=== PATIENT | female | born 1940 | race Hispanic/Latino ===

== ENCOUNTER 2017-05-14 14:13 | Inpatient (IN) | payer MEDICARE ==
[~2017-05-14] VITALS: Ht 162.6 cm; Wt 71.6 kg
[2017-05-14 14:37] LABS: BASOPHILS % (AUTO) 1.2 % (0.0-5.0); EOSINOPHILS % (AUTO) 1.8 % (0.0-8.0); HEMATOCRIT 32.9 % (36-48); LYMPHOCYTES % (AUTO) 25.1 % (21.0-51.0); MEAN CORPUSCULAR HEMOGLOBIN 27.6 pg (27.0-33.0); MEAN CORPUSCULAR HGB CONC 33.1 g/dL (32.0-36.0); MEAN CORPUSCULAR VOLUME 83.5 fL (79-99); MONOCYTES % (AUTO) 10.4 % (3.0-13.0); NEUTROPHILS % (AUTO) 61.5 % (40.0-77.0); PLATELET COUNT (AUTO) 440 K/uL (130-400); RED BLOOD CELL COUNT(AUTO) 3.93 MIL/uL (4.00-5.50); RED CELL DISTRIBUTION WIDTH 14.5 % (11.0-15.5); WHITE BLOOD COUNT (AUTO) 9.8 K/uL (4.8-10.8)
[2017-05-14] MEDS ORDERED: METOPROLOL TARTRATE 1 MG/ML 5ML VIAL IV ONE ×2 (14:38→15:47)
[2017-05-14] MEDS ORDERED: ASPIRIN 325 MG TABLET ONE (14:44)
[2017-05-14 14:49] LABS: CREATININE 1.8 mg/dL (0.5-1.5); POTASSIUM 4.6 mmol/L (3.5-5.1)
[2017-05-14 14:50] LABS: INR 1.01 (0.85-1.15); PARTIAL THROMBOPLASTIN TIME 28.1 SEC (26.3-35.5); PROTHROMBIN TIME 10.6 SEC (9.6-11.6)
[2017-05-14 15:03] LABS: ALBUMIN 3.6 g/dL (3.5-5.0); BILIRUBIN,TOTAL 0.4 mg/dL (0.2-1.0); CREATINE KINASE MB 0.8 ng/mL (0.5-3.6); TOTAL PROTEIN, SERUM 7.8 g/dL (6.0-8.3)
[2017-05-14 17:29] VITALS: BP 131/73
[2017-05-14] MEDS ORDERED: SITA50TA PO (17:45)
[2017-05-14] MEDS ORDERED: MEDROL DOSE PACK PO (17:45)
[2017-05-14] MEDS ORDERED: GUAI-899 PO (17:45)
[2017-05-14] MEDS ORDERED: METO5TAB7 PO (17:45)
[2017-05-14] MEDS ORDERED: METO37.5 PO (17:45)
[2017-05-14] MEDS ORDERED: PRAV40TA3 PO (17:45)
[2017-05-14] MEDS ORDERED: HYDR-4154 PO (17:45)
[2017-05-14] MEDS ORDERED: FURO40TA5 PO (17:45)
[2017-05-14] MEDS ORDERED: VALS160T29 PO (17:45)
[2017-05-14] MEDS ORDERED: DOXY100T2 PO (17:45)
[2017-05-14] MEDS ORDERED: AMLO10TA2 PO (17:45)
[2017-05-14] MEDS ORDERED: SODIUM CHLORIDE 0.9% 10 ML VIAL IVP PRN (18:00)
[2017-05-14] MEDS ORDERED: ONDANSETRON HCL 4 MG/2 ML VIAL IVP PRN (18:15)
[2017-05-14] MEDS ORDERED: LACTULOSE 20 GM/30 ML UDCUP PO PRN (18:15)
[2017-05-14] MEDS ORDERED: ACETAMINOPHEN 325 MG TAB PO PRN ×2 (18:15)
[2017-05-14 19:35] VITALS: BP 121/60
[2017-05-14] MEDS ORDERED: POTASSIUM CHLORIDE 10% ELIXIR 20 MEQ/15 ML UDCUP PO PRN (19:45)
[2017-05-14] MEDS ORDERED: POTASSIUM CHLORIDE 20MEQ/100ML 100 ML IV PRN (19:45)
[2017-05-14] MEDS ORDERED: GLUCAGON 1MG KIT 1 MG ML IM PRN (19:45)
[2017-05-14] MEDS ORDERED: LIDOCAINE HCL-MPF 1% 2ML VIAL IVP PRN (19:45)
[2017-05-14] MEDS ORDERED: DEXTROSE 50%-WATER 50 ML DISP.SYRIN IV PRN (19:45)
[2017-05-14] MEDS ORDERED: POTASSIUM CHLORIDE 20 MEQ ERTAB PO PRN (19:45)
[2017-05-14] MEDS: ATORVASTATIN CALCIUM 40 MG TABLET PO SCH (20:32)
[2017-05-14] MEDS: APIXABAN 5 MG TABLET PO SCH (20:32)
[2017-05-14] MEDS: CARVEDILOL 3.125 MG TABLET PO SCH (20:32)
[2017-05-14] MEDS: FAMOTIDINE 20MG TAB 20 MG TAB PO SCH (20:33)
[2017-05-14] MEDS: INSULIN HUMULIN R 100 UNIT/ML 3ML SQ SCH (20:55)
[2017-05-14] MEDS ORDERED: ASPIRIN 325 MG TABLET PO SCH (21:00)
[2017-05-14] MEDS ORDERED: CARVEDILOL 3.125 MG TABLET PO SCH (21:00)
[2017-05-14] MEDS ORDERED: ENOXAPARIN SODIUM 60 MG/0.6 ML SQ SCH (21:00)
[2017-05-14] MEDS ORDERED: ZOLPIDEM TARTRATE 5 MG TAB PO PRN (21:45)
[2017-05-14 22:53] LABS: CREATINE KINASE MB 0.7 ng/mL (0.5-3.6); TROPONIN I 0.06 ng/mL (0.00-0.06)
[2017-05-14 23:49] VITALS: BP 92/52
[2017-05-15 03:36] VITALS: BP 98/52
[2017-05-15] MEDS: INSULIN HUMULIN R 100 UNIT/ML 3ML SQ SCH ×4 (06:15→21:00)
[2017-05-15 07:10] LABS: CREATINE KINASE MB 0.7 ng/mL (0.5-3.6); THYROID STIMULATING HORMONE 2.15 uIU/mL (0.36-3.74); TROPONIN I 0.06 ng/mL (0.00-0.06)
[2017-05-15 07:15] VITALS: BP 105/51
[2017-05-15] MEDS: FAMOTIDINE 20MG TAB 20 MG TAB PO SCH ×2 (07:38→20:11)
[2017-05-15] MEDS: LOSARTAN 100 MG TABLET PO SCH (07:38)
[2017-05-15] MEDS: APIXABAN 5 MG TABLET PO SCH ×2 (07:38→20:12)
[2017-05-15] MEDS: CARVEDILOL 3.125 MG TABLET PO SCH ×2 (07:39→20:12)
[2017-05-15] MEDS ORDERED: GUAIFENESIN-CODEINE 5 ML SYRUP PO PRN (07:45)
[2017-05-15 08:09] LABS: CREATININE 1.8 mg/dL (0.5-1.5); POTASSIUM 4.5 mmol/L (3.5-5.1)
[2017-05-15] MEDS ORDERED: CARVEDILOL 3.125 MG TABLET PO SCH (08:30)
[2017-05-15] MEDS ORDERED: FUROSEMIDE 40 MG TABLET PO SCH (09:00)
[2017-05-15] MEDS: PREDNISONE 10 MG TABLET PO SCH (09:21)
[2017-05-15] MEDS: DOXYCYCLINE HYCLATE 100 MG TABLET PO SCH ×2 (09:21→20:12)
[2017-05-15] MEDS ORDERED: LINAGLIPTIN 5 MG TABLET PO SCH (10:15)
[2017-05-15 11:35] VITALS: BP 101/45
[2017-05-15] MEDS ORDERED: LINAGLIPTIN 5 MG TABLET PO PRN (12:30)
[2017-05-15 16:00] VITALS: BP 99/54
[2017-05-15 19:26] VITALS: BP 98/61
[2017-05-15] MEDS: ATORVASTATIN CALCIUM 20 MG TABLET PO SCH (20:11)
[2017-05-15] MEDS: ATORVASTATIN CALCIUM 40 MG TABLET PO SCH (20:13)
[2017-05-15] MEDS ORDERED: DILTIAZEM HCL 60 MG TABLET ONE (22:23)
[2017-05-15] MEDS: DILTIAZEM HCL 60 MG TABLET PO SCH (22:30)
[2017-05-15 23:57] VITALS: BP 93/59
[2017-05-16 03:31] VITALS: BP 117/58
[2017-05-16 03:48] LABS: HEMATOCRIT 29.6 % (36-48); MEAN CORPUSCULAR HEMOGLOBIN 27.7 pg (27.0-33.0); MEAN CORPUSCULAR HGB CONC 33.1 g/dL (32.0-36.0); MEAN CORPUSCULAR VOLUME 83.6 fL (79-99); PLATELET COUNT (AUTO) 350 K/uL (130-400); RED BLOOD CELL COUNT(AUTO) 3.54 MIL/uL (4.00-5.50); RED CELL DISTRIBUTION WIDTH 14.3 % (11.0-15.5); WHITE BLOOD COUNT (AUTO) 8.9 K/uL (4.8-10.8)
[2017-05-16] MEDS: DILTIAZEM HCL 60 MG TABLET PO SCH (03:53)
[2017-05-16 04:00] LABS: POTASSIUM 4.2 mmol/L (3.5-5.1)
[2017-05-16] MEDS: INSULIN HUMULIN R 100 UNIT/ML 3ML SQ SCH ×4 (06:09→21:00)
[2017-05-16 07:49] VITALS: BP 120/72
[2017-05-16] MEDS: APIXABAN 5 MG TABLET PO SCH ×2 (08:46→21:20)
[2017-05-16] MEDS: FAMOTIDINE 20MG TAB 20 MG TAB PO SCH ×2 (08:46→21:19)
[2017-05-16] MEDS: CARVEDILOL 3.125 MG TABLET PO SCH (08:46)
[2017-05-16] MEDS: LOSARTAN 100 MG TABLET PO SCH (08:47)
[2017-05-16] MEDS: DOXYCYCLINE HYCLATE 100 MG TABLET PO SCH ×2 (08:47→21:20)
[2017-05-16] MEDS: PREDNISONE 10 MG TABLET PO SCH (08:47)
[2017-05-16] MEDS ORDERED: AMIODARONE HCL 900 MG in DEXTROSE 5%-WATER 500 ML IV SCH (10:15)
[2017-05-16] MEDS ORDERED: AMIODARONE HCL 150 MG in DEXTROSE 5%-WATER 100 ML IV SCH (10:15)
[2017-05-16] MEDS: FUROSEMIDE 40 MG TABLET PO SCH (10:35)
[2017-05-16 11:36] VITALS: BP 103/54
[2017-05-16 16:00] VITALS: BP 110/57
[2017-05-16 19:26] VITALS: BP 125/74
[2017-05-16] MEDS: ATORVASTATIN CALCIUM 20 MG TABLET PO SCH (21:19)
[2017-05-16] MEDS: ATORVASTATIN CALCIUM 40 MG TABLET PO SCH (21:19)
[2017-05-16] MEDS: CARVEDILOL 12.5 MG TABLET PO SCH (21:20)
[2017-05-16 23:19] VITALS: BP 102/67
[2017-05-17 03:33] VITALS: BP 115/62
[2017-05-17 04:31] LABS: CREATININE 1.9 mg/dL (0.5-1.5); POTASSIUM 4.1 mmol/L (3.5-5.1)
[2017-05-17] MEDS: INSULIN HUMULIN R 100 UNIT/ML 3ML SQ SCH ×4 (05:48→20:48)
[2017-05-17 07:58] VITALS: BP 109/63
[2017-05-17] MEDS: LINAGLIPTIN 5 MG TABLET PO SCH ×2 (08:00→09:02)
[2017-05-17] MEDS: FUROSEMIDE 40 MG TABLET PO SCH (08:50)
[2017-05-17] MEDS: FAMOTIDINE 20MG TAB 20 MG TAB PO SCH ×2 (09:00→20:53)
[2017-05-17] MEDS: APIXABAN 5 MG TABLET PO SCH ×2 (09:01→20:52)
[2017-05-17] MEDS: CARVEDILOL 12.5 MG TABLET PO SCH ×2 (09:01→20:53)
[2017-05-17] MEDS: PREDNISONE 10 MG TABLET PO SCH (09:02)
[2017-05-17] MEDS: DOXYCYCLINE HYCLATE 100 MG TABLET PO SCH ×2 (09:02→20:54)
[2017-05-17] MEDS: DILTIAZEM HCL 60 MG TABLET PO SCH ×3 (10:03→20:51)
[2017-05-17 12:00] VITALS: BP 102/54
[2017-05-17] MEDS ORDERED: ONDANSETRON HCL MDV 20ML 2 MG/ML VIAL IVP PRN (12:37)
[2017-05-17 17:36] VITALS: BP 103/57
[2017-05-17 19:27] VITALS: BP 111/58
[2017-05-17] MEDS: ATORVASTATIN CALCIUM 20 MG TABLET PO SCH (20:51)
[2017-05-17] MEDS: ATORVASTATIN CALCIUM 40 MG TABLET PO SCH (20:52)
[2017-05-17] MEDS: AMIODARONE HCL 200 MG TABLET PO SCH (20:53)
[2017-05-17 23:32] VITALS: BP 101/67
[2017-05-18] VITALS (18 sets, daily range): BP systolic 90–122; BP diastolic 41–70
[2017-05-18 04:32] LABS: HEMATOCRIT 28.6 % (36-48); MEAN CORPUSCULAR HGB CONC 33.9 g/dL (32.0-36.0); MEAN CORPUSCULAR VOLUME 82.8 fL (79-99); PLATELET COUNT (AUTO) 354 K/uL (130-400); RED BLOOD CELL COUNT(AUTO) 3.46 MIL/uL (4.00-5.50); RED CELL DISTRIBUTION WIDTH 14.3 % (11.0-15.5); WHITE BLOOD COUNT (AUTO) 8.3 K/uL (4.8-10.8)
[2017-05-18 04:45] LABS: CREATININE 1.9 mg/dL (0.5-1.5); POTASSIUM 4.1 mmol/L (3.5-5.1)
[2017-05-18] MEDS: INSULIN HUMULIN R 100 UNIT/ML 3ML SQ SCH ×4 (06:27→21:00)
[2017-05-18] MEDS ORDERED: SODIUM CHLORIDE 0.9% 1000ML 1,000 ML IV ONE (08:58)
[2017-05-18] MEDS: DILTIAZEM HCL 60 MG TABLET PO SCH ×4 (09:00→19:42)
[2017-05-18] MEDS: FENTANYL CITRATE PF 50 MCG/1 ML 2ML VIAL IVP SCH ×2 (09:38)
[2017-05-18] MEDS: MIDAZOLAM HCL 1 MG/ML 5ML VIAL IVP SCH (09:38)
[2017-05-18] MEDS: MIDAZOLAM HCL 1 MG/ML 2ML VIAL IVP SCH (09:38)
[2017-05-18] MEDS ORDERED: CARV25TA PO (10:23)
[2017-05-18] MEDS ORDERED: AMIO200T44 PO (10:23)
[2017-05-18] MEDS ORDERED: APIX5TAB PO (10:23)
[2017-05-18] MEDS: AMIODARONE HCL 200 MG TABLET PO SCH ×2 (14:13→19:42)
[2017-05-18] MEDS: DOXYCYCLINE HYCLATE 100 MG TABLET PO SCH ×2 (14:13→20:07)
[2017-05-18] MEDS: PREDNISONE 10 MG TABLET PO SCH (14:14)
[2017-05-18] MEDS: LINAGLIPTIN 5 MG TABLET PO SCH (14:14)
[2017-05-18] MEDS: FAMOTIDINE 20MG TAB 20 MG TAB PO SCH ×2 (14:14→20:07)
[2017-05-18] MEDS: APIXABAN 5 MG TABLET PO SCH ×2 (14:15→20:06)
[2017-05-18] MEDS ORDERED: CARVEDILOL 12.5 MG TABLET PO SCH (15:15)
[2017-05-18] MEDS: CARVEDILOL 12.5 MG TABLET PO SCH (20:06)
[2017-05-18] MEDS: ATORVASTATIN CALCIUM 20 MG TABLET PO SCH (20:07)
[2017-05-19 03:12] VITALS: BP 119/46
[2017-05-19 07:15] VITALS: BP 131/52
[2017-05-19] MEDS: INSULIN HUMULIN R 100 UNIT/ML 3ML SQ SCH (07:30)
[2017-05-19 07:44] VITALS: BP 131/52
[2017-05-19] MEDS: PREDNISONE 10 MG TABLET PO SCH (07:44)
[2017-05-19] MEDS: LINAGLIPTIN 5 MG TABLET PO SCH (07:44)
[2017-05-19] MEDS: CARVEDILOL 12.5 MG TABLET PO SCH (07:44)
[2017-05-19] MEDS: DOXYCYCLINE HYCLATE 100 MG TABLET PO SCH (07:45)
[2017-05-19] MEDS: APIXABAN 5 MG TABLET PO SCH (07:45)
[2017-05-19] MEDS: FAMOTIDINE 20MG TAB 20 MG TAB PO SCH (07:45)
[2017-05-19] MEDS: AMIODARONE HCL 200 MG TABLET PO SCH (07:45)
[2017-05-19] MEDS: DILTIAZEM HCL 60 MG TABLET PO SCH (07:47)
[2017-05-19] MEDS: MIDAZOLAM HCL 1 MG/ML 5ML VIAL IVP SCH (07:53)
[2017-05-19] MEDS: MIDAZOLAM HCL 1 MG/ML 2ML VIAL IVP SCH (07:53)
[2017-05-19] MEDS: FENTANYL CITRATE PF 50 MCG/1 ML 2ML VIAL IVP SCH ×2 (07:53)
[2017-05-19] MEDS ORDERED: CARV12.580 PO (08:26)
== END 2017-05-19 10:12 | disposition home or self-care (01) | DRG 309 ==
LOC: EDH 14:13 → EDHIP 15:40 → 2DH 16:55
PROVIDERS: ADMIT Family Medicine; ATTEND Family Medicine
PROC: 5A2204Z Restoration of Cardiac Rhythm, Single (ICD-10-PCS; principal; 2017-05-18)
DX: I48.0 Paroxysmal atrial fibrillation (principal); I13.0 Hypertensive heart and chronic kidney disease with heart failure and stage 1 through stage 4 chronic kidney disease, or unspecified chronic kidney disease; N18.4 Chronic kidney disease, stage 4 (severe); E11.21 Type 2 diabetes mellitus with diabetic nephropathy; I42.9 Cardiomyopathy, unspecified; I08.1 Rheumatic disorders of both mitral and tricuspid valves; I50.32 Chronic diastolic (congestive) heart failure; E11.22 Type 2 diabetes mellitus with diabetic chronic kidney disease; I48.1 Persistent atrial fibrillation; I48.91 Unspecified atrial fibrillation; D64.9 Anemia, unspecified; E78.5 Hyperlipidemia, unspecified; J06.9 Acute upper respiratory infection, unspecified; J40 Bronchitis, not specified as acute or chronic; Z16.24 Resistance to multiple antibiotics; R49.0 Dysphonia; Z79.01 Long term (current) use of anticoagulants; Z79.899 Other long term (current) drug therapy; Z88.8 Allergy status to other drugs, medicaments and biological substances; Z88.0 Allergy status to penicillin; Z82.49 Family history of ischemic heart disease and other diseases of the circulatory system
CPT/HCPCS: 36415; 71045; 80048; 80053; 82550; 82553; 82948; 83874; 83880; 84443; 84484; 85025; 85027; 85610; 85730; 93005; 93306; 93312; J0282; J1815; J2250; J3010; J3490; J7030; J7060; J7512

== ENCOUNTER → 2017-08-16 | Outpatient (CLI) | payer MEDICARE ==
[~2017-08-16] MED LIST: AMIO200T44 PO; APIX5TAB PO; CARV12.580 PO; CARV25TA PO; DOXY100T2 PO; FURO40TA5 PO; GUAI-899 PO; MEDROL DOSE PACK PO; PRAV40TA3 PO; SITA50TA PO
== END | disposition home or self-care (01) ==
LOC: SHCH 09:09
PROVIDERS: ATTEND Internal Medicine Cardiovascular Disease
DX: I42.9 Cardiomyopathy, unspecified (principal); I35.0 Nonrheumatic aortic (valve) stenosis; I34.0 Nonrheumatic mitral (valve) insufficiency; I27.20 Pulmonary hypertension, unspecified
CPT/HCPCS: 93306

== ENCOUNTER 2017-10-30 23:48 | Observation (INO) | payer MEDICARE ==
[~2017-10-30] VITALS: Ht 144.8 cm; Wt 83.8 kg
[2017-10-31 00:42] LABS: BASOPHILS % (AUTO) 1.1 % (0.0-5.0); EOSINOPHILS % (AUTO) 2.5 % (0.0-8.0); HEMATOCRIT 32.1 % (36-48); LYMPHOCYTES % (AUTO) 23.4 % (21.0-51.0); MEAN CORPUSCULAR HEMOGLOBIN 26.8 pg (27.0-33.0); MEAN CORPUSCULAR HGB CONC 32.7 g/dL (32.0-36.0); MONOCYTES % (AUTO) 8.4 % (3.0-13.0); NEUTROPHILS % (AUTO) 64.6 % (40.0-77.0); NUCLEATED RED BLOOD CELLS 0.1 % (0.0-0.19); PLATELET COUNT (AUTO) 289 K/uL (130-400); RED BLOOD CELL COUNT(AUTO) 3.92 MIL/uL (4.00-5.50); RED CELL DISTRIBUTION WIDTH 15.1 % (11.0-15.5); WHITE BLOOD COUNT (AUTO) 6.7 K/uL (4.8-10.8)
[2017-10-31] MEDS ORDERED: IPRATROPIUM/ALBUTEROL SULFATE 3 ML SOLUTION IH ONE (00:42)
[2017-10-31 00:53] LABS: APPEARANCE,URINE Clear (CLEAR); BILIRUBIN,URINE Negative (NEGATIVE); COLOR,URINE Yellow (YELLOW); GLUCOSE, URINE (UA) Negative (NEGATIVE); KETONES,URINE Negative (NEGATIVE); LEUKOCYTE ESTERASE ,URINE Trace (NEGATIVE); NITRATE,URINE Negative (NEGATIVE); OCCULT BLOOD,URINE Negative (NEGATIVE); PROTEIN,URINE Negative (NEGATIVE); UROBILINOGEN,URINE 0.2 mg/dL (0.2-1.0)
[2017-10-31 00:54] LABS: ALBUMIN 3.9 g/dL (3.5-5.0); BILIRUBIN,TOTAL 0.4 mg/dL (0.2-1.0); CREATININE 1.8 mg/dL (0.5-1.5); TOTAL PROTEIN, SERUM 7.7 g/dL (6.0-8.3)
[2017-10-31 00:55] LABS: RAPID GROUP A STREP NEGATIVE (NEGATIVE)
[2017-10-31 01:09] LABS: BACTERIA,URINE None Seen /HPF (None Seen); RBC,URINE None Seen /HPF (0-1); SQUAMOUS EPITHELIAL CELL,UR Rare /HPF (0-2); WBC,URINE 0-1 /HPF (0-1)
[2017-10-31 01:13] LABS: B-TYPE NATRIURETIC PEPTIDE 115 pg/mL (0-100)
[2017-10-31 01:34] LABS: POTASSIUM 3.4 mmol/L (3.5-5.1)
[2017-10-31] MEDS: ASPIRIN 325 MG TABLET PO SCH (09:00)
[2017-10-31] MEDS ORDERED: ASPIRIN 325 MG TABLET ONE (12:31)
[2017-10-31 12:45] VITALS: BP 136/48
[2017-10-31 13:03] LABS: TROPONIN I 0.09 ng/mL (0.00-0.06)
[2017-10-31 16:00] VITALS: BP 131/47
[2017-10-31] MEDS ORDERED: APIX2.5T PO (17:12)
[2017-10-31] MEDS ORDERED: AZIT250T9 PO (17:12)
[2017-10-31] MEDS ORDERED: AMLO5TAB7 PO (17:12)
[2017-10-31] MEDS ORDERED: BUDE10.2 IH (17:12)
[2017-10-31] MEDS ORDERED: FURO40TA5 PO (17:12)
[2017-10-31] MEDS ORDERED: CARV6.25 PO (17:12)
[2017-10-31] MEDS ORDERED: HYDR-4154 PO (17:12)
[2017-10-31 19:00] VITALS: BP 137/51
[2017-10-31 23:00] VITALS: BP 121/37
[2017-11-01 03:00] VITALS: BP 121/50
[2017-11-01 07:38] VITALS: BP 151/62
[2017-11-01] MEDS: ASPIRIN 325 MG TABLET PO SCH (10:39)
[2017-11-01 11:21] VITALS: BP 132/54
[2017-11-01 15:00] VITALS: BP 148/56
[2017-11-01] MEDS ORDERED: ALBUTEROL SULFATE 0.083% 2.5 MG/3 ML INH IH SCH (18:00)
[2017-11-01 19:00] VITALS: BP 139/62
[2017-11-01] MEDS: BUDESONIDE 0.5 MG/2 ML INH IH SCH (19:51)
[2017-11-01] MEDS ORDERED: AZITHROMYCIN 250 MG TABLET PO SCH (20:30)
[2017-11-01] MEDS: CARVEDILOL 6.25 MG TABLET PO SCH (20:50)
[2017-11-01] MEDS: AMLODIPINE BESYLATE 5 MG TAB PO SCH (20:51)
[2017-11-01] MEDS: FUROSEMIDE 40 MG TABLET PO SCH (20:51)
[2017-11-01] MEDS: APIXABAN 2.5 MG TABLET PO SCH (20:51)
[2017-11-01] MEDS ORDERED: ATORVASTATIN CALCIUM 10 MG TABLET PO SCH (21:00)
[2017-11-01 23:00] VITALS: BP 134/51
[2017-11-01] MEDS: IPRATROPIUM 0.5 MG/2.5 ML INH IH PRN (23:18)
[2017-11-02 03:00] VITALS: BP 133/54
[2017-11-02 06:04] LABS: TROPONIN I 0.06 ng/mL (0.00-0.06)
[2017-11-02] MEDS: IPRATROPIUM 0.5 MG/2.5 ML INH IH PRN (06:16)
[2017-11-02] MEDS: BUDESONIDE 0.5 MG/2 ML INH IH SCH (06:16)
[2017-11-02] MEDS: HYDRALAZINE HCL 25 MG TABLET PO SCH ×3 (06:33→17:00)
[2017-11-02 07:00] VITALS: BP 129/59
[2017-11-02] MEDS: APIXABAN 2.5 MG TABLET PO SCH (08:37)
[2017-11-02] MEDS: ASPIRIN 325 MG TABLET PO SCH (08:37)
[2017-11-02] MEDS: FUROSEMIDE 40 MG TABLET PO SCH (08:37)
[2017-11-02] MEDS: AMLODIPINE BESYLATE 5 MG TAB PO SCH (08:38)
[2017-11-02] MEDS: CARVEDILOL 6.25 MG TABLET PO SCH (08:38)
[2017-11-02] MEDS ORDERED: AMIODARONE HCL 200 MG TABLET PO SCH (09:00)
[2017-11-02] MEDS ORDERED: PREDNISONE 20 MG TABLET PO SCH (09:00)
[2017-11-02] MEDS ORDERED: AZITHROMYCIN 250 MG TABLET PO SCH (09:00)
[2017-11-02 11:00] VITALS: BP 113/48
[2017-11-02 18:45] VITALS: BP 135/91
== END 2017-11-02 17:08 | disposition home or self-care (01) ==
LOC: EDH 23:48 → EDHIP 10-31 06:38 → 3BH 10-31 12:23
PROVIDERS: ADMIT Internal Medicine; ATTEND Internal Medicine
DX: J44.1 Chronic obstructive pulmonary disease with (acute) exacerbation (principal); I48.0 Paroxysmal atrial fibrillation; J84.10 Pulmonary fibrosis, unspecified; I25.10 Atherosclerotic heart disease of native coronary artery without angina pectoris; E78.5 Hyperlipidemia, unspecified; E11.9 Type 2 diabetes mellitus without complications; I11.9 Hypertensive heart disease without heart failure; Z88.0 Allergy status to penicillin; Z79.01 Long term (current) use of anticoagulants; Z90.49 Acquired absence of other specified parts of digestive tract; Z82.49 Family history of ischemic heart disease and other diseases of the circulatory system; Z83.3 Family history of diabetes mellitus
CPT/HCPCS: 36415 ×2; 71045; 71250; 80053; 81001; 82550 ×3; 83874 ×2; 83880; 84484 ×4; 85025; 87804 ×2; 87880; 93005; 94640 ×6; 94664; 99285; G0378 ×58

== ENCOUNTER 2019-04-26 00:07 | Emergency (ER) | payer MEDICARE ==
[~2019-04-26 00:07] MED LIST changes: +AMLO5TAB9 PO; +APIX2.5T PO; -APIX5TAB PO; +AZIT250T9 PO; +BUDE10.2 IH; -CARV12.580 PO; -CARV25TA PO; +CARV6.25 PO; -DOXY100T2 PO; -GUAI-899 PO; +HYDR-4154 PO; -MEDROL DOSE PACK PO; -SITA50TA PO
[2019-04-26 00:38] LABS: BASOPHILS % (AUTO) 0.6 % (0.0-5.0); EOSINOPHILS % (AUTO) 2.9 % (0.0-8.0); HEMATOCRIT 29.3 % (36-48); LYMPHOCYTES % (AUTO) 28.2 % (21.0-51.0); MEAN CORPUSCULAR HEMOGLOBIN 26.3 pg (27.0-33.0); MEAN CORPUSCULAR HGB CONC 30.4 g/dL (32.0-36.0); MEAN CORPUSCULAR VOLUME 86.4 fL (79-99); MONOCYTES % (AUTO) 10.2 % (3.0-13.0); NEUTROPHILS % (AUTO) 57.6 % (40.0-77.0); PLATELET COUNT (AUTO) 284 K/uL (130-400); RED BLOOD CELL COUNT(AUTO) 3.39 MIL/uL (4.00-5.50); RED CELL DISTRIBUTION WIDTH 13.9 % (11.0-15.5); WHITE BLOOD COUNT (AUTO) 6.6 K/uL (4.8-10.8)
[2019-04-26 00:39] LABS: CREATININE 2.1 mg/dL (0.5-1.5); POTASSIUM 3.2 mmol/L (3.5-5.1)
[2019-04-26 00:44] LABS: BILIRUBIN,TOTAL 0.4 mg/dL (0.2-1.0); TOTAL PROTEIN, SERUM 7.3 g/dL (6.0-8.3)
[2019-04-26 00:46] LABS: ALBUMIN 3.3 g/dL (3.5-5.0)
[2019-04-26] MEDS ORDERED: KETOROLAC TROMETHAMINE 30MG/ML ONE (00:53)
[2019-04-26] MEDS ORDERED: ONDANSETRON HCL 4 MG/2 ML VIAL ONE (00:53)
[2019-04-26] MEDS ORDERED: SODIUM CHLORIDE 0.9% 1000ML 1,000 ML IV ONE (00:54)
[2019-04-26 01:01] LABS: B-TYPE NATRIURETIC PEPTIDE 135 pg/mL (0-100)
[2019-04-26 02:20] LABS: INR 1.16 (0.85-1.15); PARTIAL THROMBOPLASTIN TIME 34.8 SEC (26.3-35.5); PROTHROMBIN TIME 12.5 SEC (9.6-11.6)
== END 2019-04-26 05:06 | disposition home or self-care (01) ==
LOC: EDH 00:07
DX: R00.2 Palpitations (principal); E11.9 Type 2 diabetes mellitus without complications; E78.5 Hyperlipidemia, unspecified; I10 Essential (primary) hypertension; I48.91 Unspecified atrial fibrillation; Z98.890 Other specified postprocedural states; Z90.49 Acquired absence of other specified parts of digestive tract; Z88.0 Allergy status to penicillin; Z88.1 Allergy status to other antibiotic agents
CPT/HCPCS: 36415; 71045; 80053; 82550; 83880; 84484; 85025; 85610; 85730; 93005; J1885; J2405; J7030

== ENCOUNTER → 2022-09-14 | Outpatient (CLI) | payer OTHER, MEDICARE ==
[~2022-09-14] MED LIST changes: +AMIO100T4 PO; -AMIO200T44 PO; -AMLO5TAB9 PO; -AZIT250T9 PO; -BUDE10.2 IH; -CARV6.25 PO; +FURO20TA6 PO; -FURO40TA5 PO; -HYDR-4154 PO; +POTASSIUM
[2022-09-14 12:36] LABS: BASOPHILS % (AUTO) 1.2 % (0.0-5.0); EOSINOPHILS % (AUTO) 5.9 % (0.0-8.0); HEMATOCRIT 30.5 % (36-48); LYMPHOCYTES % (AUTO) 29.5 % (21.0-51.0); MEAN CORPUSCULAR HGB CONC 30.2 g/dL (32.0-36.0); MEAN CORPUSCULAR VOLUME 89.4 fL (79-99); MONOCYTES % (AUTO) 6.8 % (3.0-13.0); NEUTROPHILS % (AUTO) 56.3 % (40.0-77.0); PLATELET COUNT (AUTO) 274 K/uL (130-400); RED BLOOD CELL COUNT(AUTO) 3.41 MIL/uL (4.00-5.50); RED CELL DISTRIBUTION WIDTH 14.6 % (11.0-15.5); WHITE BLOOD COUNT (AUTO) 5.8 K/uL (4.8-10.8)
== END | disposition home or self-care (01) ==
LOC: LAB 11:04
PROVIDERS: ATTEND Internal Medicine Cardiovascular Disease
DX: Z79.01 Long term (current) use of anticoagulants (principal)
CPT/HCPCS: 36415; 85025

== ENCOUNTER → 2023-05-03 | Outpatient (CLI) | payer OTHER, MEDICARE ==
[2023-05-03 16:18] LABS: BASOPHILS # (AUTO) 0.05 K/uL (0.00-0.20); EOSINOPHILS # (AUTO) 0.25 K/uL (0.00-0.70); HEMATOCRIT 30.8 % (36-48); IMMATURE GRANULOCYTE ABSOLUTE 0.02 K/uL (0-1); LYMPHOCYTES # (AUTO) 1.3 K/uL (1.0-4.8); MEAN CORPUSCULAR HEMOGLOBIN 27.1 pg (27.0-33.0); MEAN CORPUSCULAR HGB CONC 29.9 g/dL (32.0-36.0); MEAN CORPUSCULAR VOLUME 90.6 fL (79-99); MONOCYTES # (AUTO) 0.4 K/uL (0.1-1.0); MONOCYTES % (AUTO) 6.9 % (3.0-13.0); NEUTROPHILS # (AUTO) 3.1 K/uL (1.8-7.7); NEUTROPHILS % (AUTO) 60.7 % (40.0-77.0); PLATELET COUNT (AUTO) 294 K/uL (130-400); RED CELL DISTRIBUTION WIDTH 15.5 % (11.0-15.5)
[2023-05-03 16:20] LABS: APPEARANCE,URINE CLEAR (CLEAR); BILIRUBIN,URINE NEGATIVE (NEGATIVE); COLOR,URINE LIGHT-YELLOW (YELLOW); GLUCOSE, URINE (UA) NEGATIVE (NEGATIVE); KETONES,URINE NEGATIVE (NEGATIVE); LEUKOCYTE ESTERASE ,URINE 250 Leu/uL (NEGATIVE); NITRATE,URINE NEGATIVE (NEGATIVE); OCCULT BLOOD,URINE NEGATIVE (NEGATIVE); PH,URINE 5.5 (5.0-8.0); PROTEIN,URINE NEGATIVE (NEGATIVE); UROBILINOGEN,URINE 0.2 mg/dL (0.2-1.0)
[2023-05-03 16:23] LABS: ADD UA MICROSCOPIC YES
[2023-05-03 16:26] LABS: BACTERIA,URINE RARE /HPF (None Seen); MUCUS,URINE RARE LPF (None Seen); SQUAMOUS EPITHELIAL CELL,UR FEW /HPF (0-2); YEAST,URINE BUDDING RARE /HPF (None Seen)
[2023-05-03 17:01] LABS: BILIRUBIN,TOTAL 0.5 mg/dL (0.2-1.0); CREATININE 1.4 mg/dL (0.5-1.0); MAGNESIUM 1.9 mg/dL (1.80-2.40); POTASSIUM 3.7 mmol/L (3.5-5.1); THYROID STIMULATING HORMONE 1.35 uIU/mL (0.36-3.74); TOTAL PROTEIN, SERUM 7.3 g/dL (6.0-8.3)
== END | disposition home or self-care (01) ==
LOC: LAB 11:17
PROVIDERS: ATTEND Nurse Practitioner Acute Care
DX: I48.0 Paroxysmal atrial fibrillation (principal); I50.32 Chronic diastolic (congestive) heart failure; R30.0 Dysuria
CPT/HCPCS: 36415; 80053; 81001; 83735; 84439; 84443; 85025; 87088

== ENCOUNTER → 2023-06-13 | Outpatient (CLI) | payer OTHER, MEDICARE ==
[~2023-06-13] MED LIST changes: +AMIO200T68 PO; +AMLO-257 PO; +DOXA4TAB3 PO; +HYDR50TA37 PO; +METO50TA18 PO
[2023-06-13 12:18] LABS: BASOPHILS # (AUTO) 0.05 K/uL (0.00-0.20); BASOPHILS % (AUTO) 0.9 % (0.0-5.0); EOSINOPHILS # (AUTO) 0.08 K/uL (0.00-0.70); EOSINOPHILS % (AUTO) 1.5 % (0.0-8.0); HEMATOCRIT 33.1 % (36-48); IMMATURE GRANULOCYTE ABSOLUTE 0.02 K/uL (0-1); LYMPHOCYTES % (AUTO) 17.3 % (21.0-51.0); MEAN CORPUSCULAR HEMOGLOBIN 26.5 pg (27.0-33.0); MEAN CORPUSCULAR HGB CONC 29.9 g/dL (32.0-36.0); MEAN CORPUSCULAR VOLUME 88.7 fL (79-99); MONOCYTES # (AUTO) 0.5 K/uL (0.1-1.0); MONOCYTES % (AUTO) 8.2 % (3.0-13.0); NEUTROPHILS # (AUTO) 3.9 K/uL (1.8-7.7); NEUTROPHILS % (AUTO) 71.7 % (40.0-77.0); PLATELET COUNT (AUTO) 226 K/uL (130-400); RED BLOOD CELL COUNT(AUTO) 3.73 MIL/uL (4.00-5.50); RED CELL DISTRIBUTION WIDTH 16.4 % (11.0-15.5); WHITE BLOOD COUNT (AUTO) 5.5 K/uL (4.8-10.8)
== END | disposition home or self-care (01) ==
LOC: LAB 11:12
PROVIDERS: ATTEND Internal Medicine Cardiovascular Disease
DX: Z79.01 Long term (current) use of anticoagulants (principal)
CPT/HCPCS: 36415; 85025

== ENCOUNTER → 2023-08-30 | Outpatient (CLI) | payer OTHER, MEDICARE ==
[~2023-08-30] MED LIST changes: -AMIO100T4 PO; -AMLO-257 PO; +DORZOLAMIDE OS; +LATA2.5D14 OS; +LEVA1.2542 IH; +METO25TA6 PO; -METO50TA18 PO; +POTA25TA41 PO; -POTASSIUM; +TIMOLOL OS; +symbicort IH
[2023-08-30 12:29] LABS: CREATININE 1.1 mg/dL (0.5-1.0); POTASSIUM 3.8 mmol/L (3.5-5.1)
== END | disposition home or self-care (01) ==
LOC: LAB 08:07
PROVIDERS: ATTEND Internal Medicine Cardiovascular Disease
DX: I48.0 Paroxysmal atrial fibrillation (principal)
CPT/HCPCS: 36415; 80048; 83735

== ENCOUNTER → 2023-09-19 | Outpatient (CLI) | payer OTHER, MEDICARE ==
[2023-09-19 16:52] LABS: CREATININE 1.9 mg/dL (0.5-1.0); MAGNESIUM 1.5 mg/dL (1.80-2.40)
== END | disposition home or self-care (01) ==
LOC: LAB 14:43
PROVIDERS: ATTEND Internal Medicine Cardiovascular Disease
DX: E83.42 Hypomagnesemia (principal); E87.6 Hypokalemia
CPT/HCPCS: 36415; 80048; 83735

== ENCOUNTER → 2023-11-08 | Outpatient (CLI) | payer OTHER, MEDICARE ==
[2023-11-08 12:57] LABS: ALBUMIN 2.9 g/dL (3.5-5.0); BILIRUBIN,TOTAL 0.5 mg/dL (0.2-1.0); CREATININE 1.4 mg/dL (0.5-1.0); MAGNESIUM 2.3 mg/dL (1.80-2.40); POTASSIUM 4.4 mmol/L (3.5-5.1); TOTAL PROTEIN, SERUM 7.4 g/dL (6.0-8.3)
== END | disposition home or self-care (01) ==
LOC: LAB 10:58
PROVIDERS: ATTEND Nurse Practitioner Acute Care
DX: E87.6 Hypokalemia (principal)
CPT/HCPCS: 36415; 80053; 83735

== ENCOUNTER → 2024-01-18 | Outpatient (CLI) | payer OTHER, MEDICARE ==
[2024-01-18 12:58] LABS: CREATININE 1.3 mg/dL (0.5-1.0); MAGNESIUM 2.3 mg/dL (1.80-2.40); POTASSIUM 4.3 mmol/L (3.5-5.1)
== END | disposition home or self-care (01) ==
LOC: LAB 09:12
PROVIDERS: ATTEND Internal Medicine Cardiovascular Disease
DX: E87.6 Hypokalemia (principal); I50.32 Chronic diastolic (congestive) heart failure
CPT/HCPCS: 36415; 80048; 83735; 83880

== ENCOUNTER 2024-08-29 15:58 | Inpatient (IN) | payer OTHER, MEDICAID ==
[~2024-08-29] VITALS: Ht 160 cm; Wt 54.4 kg
[~2024-08-29 15:58] MED LIST changes: -AMIO200T68 PO; +AMIO200T73 PO; -LATA2.5D14 OS; +LATA2.5D7 OS; -PRAV40TA3 PO; +PRAV40TA62 PO
[2024-08-29 16:35] LABS: IMMATURE GRANULOCYTE ABSOLUTE 0.03 K/uL (0-1); NUCLEATED RED BLOOD CELLS 0.0 % (0.0-0.19); PLATELET COUNT (AUTO) 315 K/uL (130-400); RED BLOOD CELL COUNT(AUTO) 3.48 MIL/uL (4.00-5.50); RED CELL DISTRIBUTION WIDTH 13.9 % (11.0-15.5); WHITE BLOOD COUNT (AUTO) 6.9 K/uL (4.8-10.8)
[2024-08-29 16:45] LABS: CREATININE 1.6 mg/dL (0.5-1.0); GLOMERULAR FILTR. RATE CALC 32.0 mL/min (>90); GLUCOSE,RANDOM 173.0 mg/dL (70-105); SODIUM SERUM 138.0 mmol/L (136-145); UREA NITROGEN, BLOOD 44.0 mg/dL (7-18)
[2024-08-29 16:59] LABS: INR 1.05 (0.85-1.15)
--- NOTE | 2024-08-29 17:35 | HMCIMG ---
EXAM: CR Chest, 1 View. CLINICAL HISTORY: CP COMPARISON: 08/25/2023. FINDINGS: LUNGS: Stable left basilar opacity. The right lung is clear. PLEURAL SPACES: No pneumothorax. No right pleural effusion. MEDIASTINUM: The cardiomediastinal silhouette is within normal limits. BONES: No aggressive appearing osseous lesion seen. IMPRESSION: Stable left basilar opacity. This is likely due to a combination of effusion and infiltrate. /[place]
--- NOTE | 2024-08-29 17:50 | ERN ---
General Chief Complaint: Palpitations Stated Complaint: HYPERTENSION Time Seen by MD: 15:58 Source: patient History of Present Illness Initial Comments In his is a an 83-year-old female coming in complaining of palpitations. Per patient she does has a history of an irregular heartbeat and has had complications in the past. Dr. Molina is patient's data power consultant. Allergies: Coded Allergies: Penicillins (Unverified Allergy, Unknown, 05/14/17) cephalexin (Unverified Allergy, Unknown, 05/14/17) levofloxacin (Unverified Allergy, Unknown, 05/14/17) Home Meds Active Scripts Metoprolol Tartrate (Metoprolol Tartrate) 25 Mg Tablet, 25 MG PO DAILY, #30 TAB 3 Refills Prov:KYREE MOLINA MD 08/26/23 Potassium Bicarbonate/Cit AC (Klor-Con-Ef 25 Meq Tab Eff) 25 Meq Tablet.eff, 25 MEQ PO DAILY, #30 TAB.EFF 3 Refills Prov:KYREE MOLINA MD 08/26/23 Reported Medications Levalbuterol HCl (Levalbuterol HCl) 1.25 Mg/3 Ml Vial.neb, 1.25 MG IH AD PRN for ob, INH 08/25/23 [dorzolamide/timolol] No Conflict Check, 1 DROP OS BID 08/25/23 Latanoprost (Latanoprost) 0.005 % Drops, 1 DROP OS HS, DROP 08/25/23 [symbicort] No Conflict Check, 2 PUFF IH BID 08/25/23 Doxazosin Mesylate (Doxazosin Mesylate) 4 Mg Tablet, 4 MG PO DAILY, TAB 06/16/23 Hydralazine HCl (Hydralazine HCl) 50 Mg Tablet, 50 MG PO TID PRN for INCREASED BLOOD PRESSURE, TAB 06/16/23 Amiodarone HCl (Amiodarone HCl) 200 Mg Tablet, 100 MG PO BID, TAB 06/16/23 Furosemide (Lasix 20Mg Tab) 20 Mg Tablet, 20 MG PO DAILY, TAB 06/17/21 Apixaban (Eliquis) 2.5 Mg Tablet, 2.5 MG PO BID, TAB 10/31/17 Pravastatin Sodium (Pravastatin Sodium) 40 Mg Tablet, 40 MG PO HS, TAB 05/14/17 Past Medical History Past Medical History: A-Fib, High Cholesterol, Heart Disease, Hypertension Medical History Other: GLAUCOMA Past Surgical History: Cholecystectomy, Surgical History Other: EYE Female( History) History: Not Applicable ROS Dictation CONSTITUTIONAL: No chills, no fever, no weakness, no diaphoresis, no malaise. HEAD/FACE: No signs of trauma. EENT: No eye pain, no blurred vision, no tearing, no double vision, no ear pain, no ear discharge, no nose pain, no nasal congestion, no throat pain, no throat swelling, no mouth pain. RESPIRATORY: No cough, no orthopnea, no SOB, no stridor, no wheezing. CARDIOVASCULAR: No chest pain, no edema, palpitations, no syncope. GASTROINTESTINAL/ABDOMINAL: No abdominal pain, no constipation, no diarrhea, no nausea, no vomiting. GENITOURINARY: No abnormal discharge, no dysuria, no frequent urination, no hematuria. No complaints of pain in the genitals. MUSCULOSKELETAL: No back pain, no gout, no joint pain, no joint swelling, no muscle pain, no muscle stiffness, no neck pain. INTEGUMENTARY: No change in color, no change in hair/nails, no dryness, no lesion, no lumps, no rash. NEUROLOGICAL/PSYCH: No anxiety, not depressed, no emotional problem, no headache, no numbness, no pre-existing deficit, no history of seizures, no tremors, no weakness. HEMATOLOGIC/LYMPHATIC: Not anemic, no history of blood clots, no apparent bleeding, no bruising, glands not swollen. All Systems Negative, Except as Noted. Physical Exam Physical Exam Dictation VITAL SIGNS: Reviewed. GENERAL APPEARANCE: Alert, oriented x3, no acute distress, obese. HEAD AND FACE: Non-traumatic. EYES: PERRL, pink conjunctivas, eyelid no trauma, anterior chamber clear. EARS: Pinnas intact and no signs of trauma or erythema. Ear canals clear and no discharge. TMs no erythema. NOSE: No discharge, no bleeding. OROPHARYNX: Mouth normal, teeth no caries, tongue pink. Pharynx clear, no erythema. Tonsils no exudates, no abscesses noted. Mucous membrane moist. NECK: Supple, non-tender, no thyromegaly, no masses, no JVD, no bruits. BREAST: Deferred. CHEST: No tenderness, no crepitus, no paradoxical movement, no retractions. LUNGS: Clear, well-ventilated, symmetric, no rales, no wheezing, no rhonchi, no stridor, good breath sounds bilaterally. HEART: Regular rate, regular rhythm, no murmur, no gallops. VASCULAR: No peripheral edema. ABDOMEN: Soft, positive bowel sounds, nondistended, no guarding, nontender, no rebound, no masses no hepatomegaly, no splenomegaly, no Clark's sign, no hernias. RECTAL: Deferred. GENITAL: Deferred. NEUROLOGICAL: Normal speech, gross motor function intact, gross sensory function intact. MUSCULOSKELETAL: Neck nontender, full range of motion, back nontender, full range of motion. EXTREMITIES: Nontender, full range of motion. SKIN: Color pink, dry, no turgor, no rash, no lacerations, no abrasions, no contusions. LYMPHATICS: Deferred. Results Laboratory and Microbiology Lab and Micro Result Laboratory Tests Test 08/29/24 16:27 White Blood Count 6.9 K/uL (4.8-10.8) Red Blood Count 3.48 MIL/uL (4.00-5.50) L Hemoglobin 9.8 g/dL (12.0-16.0) L Hematocrit 31.3 % (36-48) L Mean Corpuscular Volume 89.9 fL (79-99) Mean Corpuscular Hemoglobin 28.2 pg (27.0-33.0) Mean Corpuscular Hemoglobin Concent 31.3 g/dL (32.0-36.0) L Red Cell Distribution Width 13.9 % (11.0-15.5) Platelet Count 315 K/uL (130-400) Mean Platelet Volume 8.9 fL (7.5-10.5) Immature Granulocyte % (Auto) 0.4 % (0-1) Neutrophils (%) (Auto) 75.4 % (40.0-77.0) Lymphocytes (%) (Auto) 14.2 % (21.0-51.0) L Monocytes (%) (Auto) 7.7 % (3.0-13.0) Eosinophils (%) (Auto) 1.9 % (0.0-8.0) Basophils (%) (Auto) 0.4 % (0.0-5.0) Neutrophils # (Auto) 5.2 K/uL (1.8-7.7) Lymphocytes # (Auto) 1.0 K/uL (1.0-4.8) Monocytes # (Auto) 0.5 K/uL (0.1-1.0) Eosinophils # (Auto) 0.13 K/uL (0.00-0.70) Basophils # (Auto) 0.03 K/uL (0.00-0.20) Absolute Immature Granulocyte (auto 0.03 K/uL (0-1) Nucleated Red Blood Cells 0.0 % (0.0-0.19) Prothrombin Time 11.1 SEC (9.6-11.6) Prothromb Time International Ratio 1.05 (0.85-1.15) Sodium Level 138 mmol/L (136-145) Potassium Level 4.0 mmol/L (3.5-5.1) Chloride Level 101 mmol/L (101-111) Carbon Dioxide Level 29 mmol/L (21-32) Blood Urea Nitrogen 44 mg/dL (7-18) H Creatinine 1.6 mg/dL (0.5-1.0) H Glomerular Filtration Rate Calc 32 mL/min (>90) Random Glucose 173 mg/dL (70-105) H Total Calcium 9.3 mg/dL (8.5-10.1) Magnesium Level 2.70 mg/dL (1.80-2.40) H Troponin I High Sensitivity 135 ng/L (4-50) *H Labs Reviewed?: Yes EKG/XRAY/US/CT/MRI EKG Comment 08/29/2024 time 5:14 p.m. Ventricular rate [address] wave elevation or depression X-RAY Comment IMAGING REPORT Signed PATIENT: EMMIE BENJAMIN MR#: [id number] : 1940 SEX: F AGE: 83 LOCATION: [facility] ORDER 05 STATUS: REG ER REPORT#: [id number] SERVICE [id number] REASON: CP ORDERING PHYSICIAN: BAUTISTA RAMSAY MD PROCEDURE: CXR1VW - CHEST 1VW EXAM: CR Chest, 1 View. CLINICAL HISTORY: CP COMPARISON: 08/25/2023. FINDINGS: LUNGS: Stable left basilar opacity. The right lung is clear. PLEURAL SPACES: No pneumothorax. No right pleural effusion. MEDIASTINUM: The cardiomediastinal silhouette is within normal limits. BONES: No aggressive appearing osseous lesion seen. IMPRESSION: Stable left basilar opacity. This is likely due to a combination of effusion and infiltrate. /[place] DICTATED BY: LICHA BECK MD DATE: 08/29/241833 ELECTRONICALLY SIGNED BY: LICHA BECK MD DATE: 08/29/241833 [facility] MDM: Differential diagnosis: ACS, AFib, palpitations, Rationale: Tests considered and ordered secondary to shared decision making include: labs, ECG and radiology Previous outside records reviewed: Old ER visits. Risk of complication and/or morbidity or mortality of patient management: None Medications-Per medication reconciliation Need for hospitalization: Patient does meet criteria for hospitalization. Need for emergency major/minor surgery: No There are no social concerns with this patient. Prescription drug management Prescriptions will include symptomatic care Patient's prior external medical records from other ER visits were reviewed by me as indicated. Prior testing and results from previous visits were reviewed. Prior tests were taken into account with medical decision making and resource utilization, independent historian/historians were used to obtain complete medical history. I independently interpreted the test that were performed, results were reviewed by me and considered findings on radiology if ordered. Medical management and examination interpretation discussions were had by me with other qualified healthcare professionals as indicated for the patient's care. Patient will be Be admitted under the care of Dr. Olivas for ongoing management ED Course Orders Procedure Category Date Status Time Cbc With Differential LAB 08/29/24 Complete 16:04 Prothrombin Time With LAB 08/29/24 Complete INR 16:04 Chest 1vw RAD 08/29/24 Resulted 16:04 12 Lead Ekg Tracing- EKG 08/29/24 Logged Technical 16:04 Magnesium LAB 08/29/24 Complete 16:04 Troponin I High LAB 08/29/24 Complete Sensitivity 16:04 Urinalysis Profile LAB 08/29/24 Logged 16:04 Basic Metabolic Panel LAB 08/29/24 Complete 16:04 Vital Signs Date Time Temp Pulse Resp B/P (MAP) Pulse Ox O2 Delivery O2 Flow Rate FiO2 08/29/24 16:17 98.2 98 18 105/60 99 Room Air DX & DISP Disposition: Inpatient Decision to Admit Time: 17:57 Departure Impression: Primary Impression: Afib Additional Impression: Elevated troponin Condition: Stable Referrals: XIOMY VARELA MD (PCP) BAUTISTA RAMSAY MD Aug 29, 2024 17:50
--- NOTE | 2024-08-29 18:44 | NUR ---
Trop-145 ERMD MADE AWARE
[2024-08-29 20:25] LABS: APPEARANCE,URINE CLEAR (CLEAR); GLUCOSE, URINE (UA) NEGATIVE (NEGATIVE); LEUKOCYTE ESTERASE ,URINE NEGATIVE Leu/uL (NEGATIVE); NITRATE,URINE NEGATIVE (NEGATIVE); OCCULT BLOOD,URINE NEGATIVE (NEGATIVE)
[2024-08-29 20:26] LABS: ADD UA MICROSCOPIC YES
[2024-08-29 20:27] LABS: SQUAMOUS EPITHELIAL CELL,UR FEW /HPF (0-2)
--- NOTE | 2024-08-29 22:00 | NUR ---
DR GERBER MADE AWARE OF CONSULT
[2024-08-29] MEDS ORDERED: FLUT1BLS3 IH (22:12)
[2024-08-29] MEDS ORDERED: ANAS1TAB49 PO (22:12)
[2024-08-30] VITALS (20 sets, daily range): BP systolic 113–156; BP diastolic 41–79; PULSE 37–65; RESP 14–37; TEMP 97.6–98.2; O2SAT 97–99
--- NOTE | 2024-08-30 05:06 | NUR ---
HR [address] Stoll patient with change in HR. Patient HR 40s. EKG performed and readback to MD. Patient with no complaints at this time. Vitals readback to MD. Per Dr. Stoll will come see pt this morning.
[2024-08-30 06:12] LABS: IMMATURE GRANULOCYTE ABSOLUTE 0.04 K/uL (0-1); NUCLEATED RED BLOOD CELLS 0.0 % (0.0-0.19); PLATELET COUNT (AUTO) 271 K/uL (130-400); RED BLOOD CELL COUNT(AUTO) 3.21 MIL/uL (4.00-5.50); RED CELL DISTRIBUTION WIDTH 13.8 % (11.0-15.5); WHITE BLOOD COUNT (AUTO) 6.3 K/uL (4.8-10.8)
[2024-08-30 06:26] LABS: ASPARTATE AMINOTRANSFERASE 17.0 U/L (10-37); CREATININE 1.6 mg/dL (0.5-1.0); GLOMERULAR FILTR. RATE CALC 32.0 mL/min (>90); GLUCOSE,RANDOM 97.0 mg/dL (70-105); SODIUM SERUM 140.0 mmol/L (136-145); TOTAL PROTEIN, SERUM 7.3 g/dL (6.0-8.3); UREA NITROGEN, BLOOD 40.0 mg/dL (7-18)
--- NOTE | 2024-08-30 07:18 | EKG ---
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 : 1940 Requested By: BAUTISTA RAMSAY Order Number: [id number] Reading MD: Marissa Roy Measurements Intervals [place] Rate: 88 P: 266 ME: 310 QRS: -54 QRSD: 126 T: 99 QT: 384 QTc: 440 Interpretive Statements Sinus or ectopic atrial rhythm with APCs and first degree AV block Atrial premature complexes Nonspecific IVCD with LAD LVH with secondary repolarization abnormality ST elevation secondary to LVH Compared to ECG 08/26/2023 15:45:38 Ectopic atrial rhythm now present Atrial premature complex(es) now present First degree AV block now present Intraventricular conduction delay now present Early repolarization now present Sinus bradycardia no longer present Possible ischemia no longer present Electronically Signed On 08-31-2024 08:00:42 CDT by Marissa Roy Please click the below link to view image of tracing.
--- NOTE | 2024-08-30 07:18 | EKG ---
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 : 1940 Requested By: JOSI TAY Order Number: [id number] Reading MD: Marissa Roy Measurements Intervals [place] Rate: 39 P: 82 LA: 206 QRS: -43 QRSD: 104 T: 72 QT: 464 QTc: 373 Interpretive Statements 2:1 AV block Left axis deviation Pulmonary disease pattern Nonspecific T wave abnormality Compared to ECG 08/29/2024 19:50:04 Left-axis deviation now present T-wave abnormality now present Ectopic atrial rhythm no longer present Left ventricular hypertrophy no longer present Early repolarization no longer present ST (T wave) deviation no longer present Electronically Signed On 08-31-2024 07:59:48 CDT by Marissa Roy Please click the below link to view image of tracing.
--- NOTE | 2024-08-30 07:50 | NUR ---
STATUS Resting quietly in bed. Spouse at bedside. Pt denies chest pain, pressure, tightness or palpitations. Denies SOB. VS as recorded. Assessment completed/recorded. Pt aware of pending cardiology evaluation. Questions addressed. No complaints or concerns voiced by pt. Side rails up for safety - bed alarm active and pt is aware of purpose. Pt has needed items, call light within reach.
--- NOTE | 2024-08-30 12:00 | NUR ---
MD VISIT in to see pt in consultation. Per MD, pt not to continue oral chem while hospitalized. No contraindication for planned procedures per MD. MD made aware of pending consult with for possible PPM.
--- NOTE | 2024-08-30 12:40 | CONS ---
Cardiology Consult Note Attending Full Stack Software Engineer: Dr. Sadiq Marino Primary Full Stack Software Engineer: Dr. Oneil Molina Consulting Physician: Dr. Schuster Date of Service: 08/30/2024 Reason for Consult: Sinus bradycardia HPI: This is a n 83y/o female with a past medical history of HTN, HLP, DM2, CKD stage III, HFpEF (LVEF: 55-60% by echo done 05/29/2024), tachybrady syndrome, paroxysmal atrial fibrillation, on oral anticoagulation, h/o GI bleeding, refusing GI evaluation, and recently diagnosed breast CA, on immunotherapy who presents with palpitations of 1 day in duration. The symptoms began spontaneously, yesterday morning, and over the ensuing timeframe her symptoms were constant and progressively worsened. The symptoms were present throughout the day, were exacerbated by physical activity and not alleviated by anything. Associated symptoms include chest pain (pressure like in quality) and tachycardia (HR ~ 150 bpm). Pertinent negatives include headache, dizziness, syncope, shortness of breath, PND, orthopnea, abdominal pain, nausea, vomiting, weight gain, lower extremity swelling, diaphoresis, fever, or chills. The patient's progression of symptoms prompted her to take an additional dose of metoprolol and seek a higher level of care. While on the inpatient, the patient was found to be bradycardic, with HR's ranging between 33-46 bpm. Cardiology was consulted for treatment recommendations. PMH: Listed above PSH: Listed above FH: Noncontributory SH: Denies alcohol, tobacco, or illicit drug use. Allergies: Coded Allergies: Penicillins (Unverified Allergy, Unknown, 05/14/17) cephalexin (Unverified Allergy, Unknown, 05/14/17) levofloxacin (Unverified Allergy, Unknown, 05/14/17) Review of systems: General: As per the HPI HEENT: Denies changes in vision, earache or sore throat Neck: Denies pain or stiffness Cardio: As per the HPI Pulm: Denies SOB, coughing or wheezing GI: Denies abdominal pain, nausea, vomiting, diarrhea, or constipation. MSK: Denies decreased ROM or joint pain. Heme: Denies anemia, easy bruising, or bleeding. Neuro: Denies headache, dizziness, or syncope. Psyche: Denies anxiety, depression, or suicidal ideation. Physical Exam: Vital Signs Date Time Temp Pulse Resp B/P (MAP) Pulse Ox O2 Delivery O2 Flow Rate FiO2 08/30/24 07:50 98 Room Air* 0 21 08/30/24 06:45 65 37 151/68 08/30/24 05:00 97.9 General: Alert and oriented. NAD. Chronically ill appearing. Frail. HEENT: NC/AT. Oral mucosa is moist. Neck: No masses, JVD, or carotid bruits Lungs: NRD. SCM. Bilaterally CTA. No obvious wheezing, rales or rhonchi. Cardio: Bradycardiac noted. Normal S1 and S2. +S4. PMI was not displaced. Abdomen: Soft. NT. ND. Normal active bowel sounds x 4 quadrants. Extremities: Diminished throughout. No edema, clubbing, or cyanosis. Neuro: CN II-XII were grossly intact. No focal deficits. Labs: Laboratory Tests Test 08/29/24 16:27 08/29/24 18:21 08/29/24 20:11 08/29/24 21:36 Range/Units White Blood Count 6.9 4.8-10.8 K/uL Red Blood Count 3.48 L 4.00-5.50 MIL/uL Hemoglobin 9.8 L 12.0-16.0 g/dL Hematocrit 31.3 L 36-48 % Mean Corpuscular Volume 89.9 79-99 fL Mean Corpuscular Hemoglobin 28.2 27.0-33.0 pg Mean Corpuscular Hemoglobin Concent 31.3 L 32.0-36.0 g/dL Red Cell Distribution Width 13.9 11.0-15.5 % Platelet Count 315 130-400 K/uL Mean Platelet Volume 8.9 7.5-10.5 fL Immature Granulocyte % (Auto) 0.4 0-1 % Neutrophils (%) (Auto) 75.4 40.0-77.0 % Lymphocytes (%) (Auto) 14.2 L 21.0-51.0 % Monocytes (%) (Auto) 7.7 3.0-13.0 % Eosinophils (%) (Auto) 1.9 0.0-8.0 % Basophils (%) (Auto) 0.4 0.0-5.0 % Neutrophils # (Auto) 5.2 1.8-7.7 K/uL Lymphocytes # (Auto) 1.0 1.0-4.8 K/uL Monocytes # (Auto) 0.5 0.1-1.0 K/uL Eosinophils # (Auto) 0.13 0.00-0.70 K/uL Basophils # (Auto) 0.03 0.00-0.20 K/uL Absolute Immature Granulocyte (auto 0.03 0-1 K/uL Nucleated Red Blood Cells 0.0 0.0-0.19 % Prothrombin Time 11.1 9.6-11.6 SEC Prothromb Time International Ratio 1.05 0.85-1.15 Sodium Level 138 136-145 mmol/L Potassium Level 4.0 3.5-5.1 mmol/L Chloride Level 101 101-111 mmol/L Carbon Dioxide Level 29 21-32 mmol/L Blood Urea Nitrogen 44 H 7-18 mg/dL Creatinine 1.6 H 0.5-1.0 mg/dL Glomerular Filtration Rate Calc 32 >90 mL/min Random Glucose 173 H 70-105 mg/dL Total Calcium 9.3 8.5-10.1 mg/dL Magnesium Level 2.70 H 1.80-2.40 mg/dL Troponin I High Sensitivity 135 *H 145 *H 4-50 ng/L Urine Color COLORLESS YELLOW Urine Appearance CLEAR CLEAR Urine pH 7.5 5.0-8.0 Urine Specific [place] 1.008 1.001-1.031 Urine Protein NEGATIVE NEGATIVE mg/dL Urine Glucose (UA) NEGATIVE NEGATIVE mg/dL Urine Ketones NEGATIVE NEGATIVE mg/dL Urine Occult Blood NEGATIVE NEGATIVE Urine Nitrate NEGATIVE NEGATIVE Urine Bilirubin NEGATIVE NEGATIVE mg/dL Urine Urobilinogen 0.2 0.2-1.0 mg/dL Urine Leukocyte Esterase NEGATIVE NEGATIVE Michael/uL Urine RBC 2-5 H 0-1 /HPF Urine WBC 0-1 0-1 /HPF Urine Squamous Epithelial Cells FEW 0-2 /HPF Urine Bacteria FEW None Seen /HPF Whole Blood Glucose 151 H 70-110 MG/DL Test 08/30/24 06:02 Range/Units White Blood Count 6.3 4.8-10.8 K/uL Red Blood Count 3.21 L 4.00-5.50 MIL/uL Hemoglobin 9.1 L 12.0-16.0 g/dL Hematocrit 29.2 L 36-48 % Mean Corpuscular Volume 91.0 79-99 fL Mean Corpuscular Hemoglobin 28.3 27.0-33.0 pg Mean Corpuscular Hemoglobin Concent 31.2 L 32.0-36.0 g/dL Red Cell Distribution Width 13.8 11.0-15.5 % Platelet Count 271 130-400 K/uL Mean Platelet Volume 8.4 7.5-10.5 fL Immature Granulocyte % (Auto) 0.6 0-1 % Neutrophils (%) (Auto) 62.1 40.0-77.0 % Lymphocytes (%) (Auto) 23.5 21.0-51.0 % Monocytes (%) (Auto) 10.0 3.0-13.0 % Eosinophils (%) (Auto) 3.3 0.0-8.0 % Basophils (%) (Auto) 0.5 0.0-5.0 % Neutrophils # (Auto) 3.9 1.8-7.7 K/uL Lymphocytes # (Auto) 1.5 1.0-4.8 K/uL Monocytes # (Auto) 0.6 0.1-1.0 K/uL Eosinophils # (Auto) 0.21 0.00-0.70 K/uL Basophils # (Auto) 0.03 0.00-0.20 K/uL Absolute Immature Granulocyte (auto 0.04 0-1 K/uL Nucleated Red Blood Cells 0.0 0.0-0.19 % Sodium Level 140 136-145 mmol/L Potassium Level 3.8 3.5-5.1 mmol/L Chloride Level 104 101-111 mmol/L Carbon Dioxide Level 30 21-32 mmol/L Blood Urea Nitrogen 40 H 7-18 mg/dL Creatinine 1.6 H 0.5-1.0 mg/dL Glomerular Filtration Rate Calc 32 >90 mL/min Whole Blood Glucose 91 70-110 MG/DL Random Glucose 97 70-105 mg/dL Hemoglobin A1c 5.3 4.0-6.0 % Estimated Average Glucose (eAG) 105 70-126 mg/dL Total Calcium 9.3 8.5-10.1 mg/dL Magnesium Level 2.70 H 1.80-2.40 mg/dL Total Bilirubin 0.5 0.2-1.0 mg/dL Aspartate Amino Transf (AST/SGOT) 17 10-37 U/L Alanine Aminotransferase (ALT/SGPT) 13 12-78 U/L Alkaline Phosphatase 72 50-136 U/L Total Protein 7.3 6.0-8.3 g/dL Albumin 2.7 L 3.5-5.0 g/dL Assessment: -Tachybrady syndrome -Paroxysmal atrial fibrillation with RVR -HTN -HLP -DM2 -CKD stage III -HFpEF (LVEF: 55-60% by echo done 05/29/2024), -Hypochromic anemia -h/o GI bleeding, refusing GI evaluation -Recently diagnosed breast CA, on immunotherapy Plan: 1. Tachybrady syndrome -Currently hemodynamically stable, but in sinus bradycardia with HR ranging between 33-46 bpm -Hold BB and antiarrhythmic therapy -Consult EP, Dr. Rader, for possible PPM implantation (will see patient in the AM). -CHADS2 VASc score: Minimum of 6 points. We will start the patient on full dose Lovenox (1mg/kg) Q24H (renally adjusted). Once all planned procedures have been performed, and prior to discharge, the patient should be transitioned to oral anticoagulation with Eliquis 2.5 mg BID (reduced dosing due to age, weight, and renal dysfunction). -Please keep the patient on continuous telemetry monitoring and maintain electrolytes within normal parameters. 2. Paroxysmal atrial fibrillation with RVR -See plan 1 for treatment details. This case was discussed with my Supervising Physician, Dr. Sadiq Marino, and the above mentioned plan was formulated and agreed upon. -Consult Note written by Kimberly Vick, MSN, NEWSPAPER JOURNALIST, AGACNP-BC KIMBERLY VICK NP Aug 30, 2024 12:40
--- NOTE | 2024-08-30 12:43 | HP ---
DATE OF ADMISSION: 08/29/2024 HISTORY AND PHYSICAL PRESENTING COMPLAINT: Palpitation. HISTORY OF PRESENT ILLNESS: An 83-year-old female with history of right breast cancer, atrial fibrillation, hypertension, and dyslipidemia who presented to the hospital with palpitation. The patient's symptoms started few hours prior to presentation. The patient has a of atrial fibrillation and takes Eliquis. The patient is also on metoprolol. The patient claims she took 50 mg of metoprolol instead of 25. The patient has no fever or chills. Upon arrival in the ER, the patient's heart rate was 98. EKG showed sinus rhythm. The patient's troponin was 135. Denies chest pain or orthopnea. No shortness of breath. Denies dysuria or urinary frequency. The patient follows with Dr. Oneil Molina. PAST MEDICAL HISTORY: * Atrial fibrillation. * Hypertension. * Dyslipidemia. * Hypothyroidism. * Glaucoma. * Right breast cancer. PAST SURGICAL HISTORY: * Cholecystectomy. * Eye surgery. * section. * DC cardioversion. * Right breast biopsy. ALLERGIES: No known drug allergies. HOME MEDICATIONS: Include, * Lopressor. * Eliquis. * Anastrozole. SOCIAL HISTORY: . No alcohol, tobacco or illicit drug use. FAMILY HISTORY: Noncontributory. REVIEW OF SYSTEMS: Greater than 10 systems were reviewed, negative except as documented above. PHYSICAL EXAMINATION: GENERAL: Elderly female, awake. VITAL SIGNS: Temperature 98.2, pulse 90, respiratory rate 18, BP 119/63. EYES: No icterus. Pupils equal and reactive. HENT: No oral thrush seen. Moist oral mucosa. NECK: Supple. No JVD or thyromegaly. LUNGS: Good air entry. No rales. No rhonchi. CARDIOVASCULAR SYSTEM: S1 and S2 regular. No murmur heard. ABDOMEN: Full, soft, nontender. Bowel sound is present. CENTRAL NERVOUS SYSTEM: Awake, alert, and oriented x 3. No focal deficits. SKIN: No rashes. No itchiness. LYMPHATIC: No peripheral nephropathy. BACK: No deformity. No pressure ulcer. MUSCULOSKELETAL: No joint swelling, erythema or tenderness. LABORATORY DATA: Troponin 125, sodium 138, potassium 4.0, BUN 41, creatinine 1.6. WBC 6.9, hemoglobin 9.8, platelets 250. Urinalysis negative. RADIOLOGY: EKG shows sinus tachycardia. ASSESSMENT: An 83-year-old female presented with palpitations. Current problems include: * Atrial fibrillation with rapid ventricular response. * Dehydration. * Acute renal failure. * History of right breast cancer. * Hypertension. * Debility. PLAN: * The patient will be admitted to telemetry. * Troponin will be trended. * Continue Eliquis * Lopressor will be placed on hold. * Cardiology evaluation. * Oncology evaluation. * Monitor electrolyte and correct as needed. * The patient will be followed up closely. TID: [id number] RECEIPT: [id number] MTDD
--- NOTE | 2024-08-30 12:48 | CONS ---
CONSULT NOTE: This is a n 83y/o female with a past medical history of Coronary artery disease. It seems the patient was admitted to the hospital with shortness of breath. Patient was called. Patient with bradycardia/tacky syndrome. Patient was evaluated by cardiology and their plan for possible pacemaker insertion. This patient with past medical history significant for breast cancer with the patient follow-up with Dr. Vega and was [facility]. It seems the patient was not a candidate for any chemo. Patient receiving hormonal therapy treatment with anastrozole. PMH: Listed above PSH: Listed above FH: Noncontributory SH: Denies alcohol, tobacco, or illicit drug use. Allergies: Coded Allergies: Penicillins (Unverified Allergy, Unknown, 05/14/17) cephalexin (Unverified Allergy, Unknown, 05/14/17) levofloxacin (Unverified Allergy, Unknown, 05/14/17) Review of systems: General: As per the HPI HEENT: Denies changes in vision, earache or sore throat Neck: Denies pain or stiffness Cardio: As per the HPI Pulm: Denies SOB, coughing or wheezing GI: Denies abdominal pain, nausea, vomiting, diarrhea, or constipation. MSK: Denies decreased ROM or joint pain. Heme: Denies anemia, easy bruising, or bleeding. Neuro: Denies headache, dizziness, or syncope. Psyche: Denies anxiety, depression, or suicidal ideation. Physical Exam: Vital Signs Date Time Temp Pulse Resp B/P (MAP) Pulse Ox O2 Delivery O2 Flow Rate FiO2 08/30/24 07:50 98 Room Air* 0 21 08/30/24 06:45 65 37 151/68 08/30/24 05:00 97.9 General: Alert and oriented. NAD. Chronically ill appearing. Frail. HEENT: NC/AT. Oral mucosa is moist. Neck: No masses, JVD, or carotid bruits Lungs: NRD. SCM. Bilaterally CTA. No obvious wheezing, rales or rhonchi. Cardio: Bradycardiac noted. Normal S1 and S2. +S4. PMI was not displaced. Abdomen: Soft. NT. ND. Normal active bowel sounds x 4 quadrants. Extremities: Diminished throughout. No edema, clubbing, or cyanosis. Neuro: CN II-XII were grossly intact. No focal deficits. Assessment 1. Anemia 2. Chronic renal insufficiency 3. History of breast cancer with the patient on hormonal therapy treatment with anastrozole. Patient follows with Dr. Marin from [facility]. 4. Shortness of breath 5. Failure to thrive Plan 1. We will hold her hormonal therapy treatment with anastrozole while she is in the hospital. 2. This patient clear from hematology oncology point of view for pacemaker insertion. 3. I have long discussion with the patient and family member regarding the plan of care. I answer all question and concern and I spent more than 35 minutes. I discussed the case with her oncologist to agree on the plan of care. Laboratory Tests Test 08/29/24 16:27 08/29/24 18:21 08/29/24 20:11 08/29/24 21:36 White Blood Count 6.9 K/uL (4.8-10.8) Red Blood Count 3.48 MIL/uL (4.00-5.50) L Hemoglobin 9.8 g/dL (12.0-16.0) L Hematocrit 31.3 % (36-48) L Mean Corpuscular Volume 89.9 fL (79-99) Mean Corpuscular Hemoglobin 28.2 pg (27.0-33.0) Mean Corpuscular Hemoglobin Concent 31.3 g/dL (32.0-36.0) L Red Cell Distribution Width 13.9 % (11.0-15.5) Platelet Count 315 K/uL (130-400) Mean Platelet Volume 8.9 fL (7.5-10.5) Immature Granulocyte % (Auto) 0.4 % (0-1) Neutrophils (%) (Auto) 75.4 % (40.0-77.0) Lymphocytes (%) (Auto) 14.2 % (21.0-51.0) L Monocytes (%) (Auto) 7.7 % (3.0-13.0) Eosinophils (%) (Auto) 1.9 % (0.0-8.0) Basophils (%) (Auto) 0.4 % (0.0-5.0) Neutrophils # (Auto) 5.2 K/uL (1.8-7.7) Lymphocytes # (Auto) 1.0 K/uL (1.0-4.8) Monocytes # (Auto) 0.5 K/uL (0.1-1.0) Eosinophils # (Auto) 0.13 K/uL (0.00-0.70) Basophils # (Auto) 0.03 K/uL (0.00-0.20) Absolute Immature Granulocyte (auto 0.03 K/uL (0-1) Nucleated Red Blood Cells 0.0 % (0.0-0.19) Prothrombin Time 11.1 SEC (9.6-11.6) Prothromb Time International Ratio 1.05 (0.85-1.15) Sodium Level 138 mmol/L (136-145) Potassium Level 4.0 mmol/L (3.5-5.1) Chloride Level 101 mmol/L (101-111) Carbon Dioxide Level 29 mmol/L (21-32) Blood Urea Nitrogen 44 mg/dL (7-18) H Creatinine 1.6 mg/dL (0.5-1.0) H Glomerular Filtration Rate Calc 32 mL/min (>90) Random Glucose 173 mg/dL (70-105) H Total Calcium 9.3 mg/dL (8.5-10.1) Magnesium Level 2.70 mg/dL (1.80-2.40) H Troponin I High Sensitivity 135 ng/L (4-50) *H 145 ng/L (4-50) *H Urine Color COLORLESS (YELLOW) Urine Appearance CLEAR (CLEAR) Urine pH 7.5 (5.0-8.0) Urine Specific [place] 1.008 (1.001-1.031) Urine Protein NEGATIVE mg/dL (NEGATIVE) Urine Glucose (UA) NEGATIVE mg/dL (NEGATIVE) Urine Ketones NEGATIVE mg/dL (NEGATIVE) Urine Occult Blood NEGATIVE (NEGATIVE) Urine Nitrate NEGATIVE (NEGATIVE) Urine Bilirubin NEGATIVE mg/dL (NEGATIVE) Urine Urobilinogen 0.2 mg/dL (0.2-1.0) Urine Leukocyte Esterase NEGATIVE Michael/uL Urine RBC 2-5 /HPF (0-1) H Urine WBC 0-1 /HPF (0-1) Urine Squamous Epithelial Cells FEW /HPF (0-2) Urine Bacteria FEW /HPF (None Seen) Whole Blood Glucose 151 MG/DL (70-110) H Test 08/30/24 06:02 White Blood Count 6.3 K/uL (4.8-10.8) Red Blood Count 3.21 MIL/uL (4.00-5.50) L Hemoglobin 9.1 g/dL (12.0-16.0) L Hematocrit 29.2 % (36-48) L Mean Corpuscular Volume 91.0 fL (79-99) Mean Corpuscular Hemoglobin 28.3 pg (27.0-33.0) Mean Corpuscular Hemoglobin Concent 31.2 g/dL (32.0-36.0) L Red Cell Distribution Width 13.8 % (11.0-15.5) Platelet Count 271 K/uL (130-400) Mean Platelet Volume 8.4 fL (7.5-10.5) Immature Granulocyte % (Auto) 0.6 % (0-1) Neutrophils (%) (Auto) 62.1 % (40.0-77.0) Lymphocytes (%) (Auto) 23.5 % (21.0-51.0) Monocytes (%) (Auto) 10.0 % (3.0-13.0) Eosinophils (%) (Auto) 3.3 % (0.0-8.0) Basophils (%) (Auto) 0.5 % (0.0-5.0) Neutrophils # (Auto) 3.9 K/uL (1.8-7.7) Lymphocytes # (Auto) 1.5 K/uL (1.0-4.8) Monocytes # (Auto) 0.6 K/uL (0.1-1.0) Eosinophils # (Auto) 0.21 K/uL (0.00-0.70) Basophils # (Auto) 0.03 K/uL (0.00-0.20) Absolute Immature Granulocyte (auto 0.04 K/uL (0-1) Nucleated Red Blood Cells 0.0 % (0.0-0.19) Sodium Level 140 mmol/L (136-145) Potassium Level 3.8 mmol/L (3.5-5.1) Chloride Level 104 mmol/L (101-111) Carbon Dioxide Level 30 mmol/L (21-32) Blood Urea Nitrogen 40 mg/dL (7-18) H Creatinine 1.6 mg/dL (0.5-1.0) H Glomerular Filtration Rate Calc 32 mL/min (>90) Whole Blood Glucose 91 MG/DL (70-110) Random Glucose 97 mg/dL (70-105) Hemoglobin A1c 5.3 % (4.0-6.0) Estimated Average Glucose (eAG) 105 mg/dL (70-126) Total Calcium 9.3 mg/dL (8.5-10.1) Magnesium Level 2.70 mg/dL (1.80-2.40) H Total Bilirubin 0.5 mg/dL (0.2-1.0) Aspartate Amino Transf (AST/SGOT) 17 U/L (10-37) Alanine Aminotransferase (ALT/SGPT) 13 U/L (12-78) Alkaline Phosphatase 72 U/L (50-136) Total Protein 7.3 g/dL (6.0-8.3) Albumin 2.7 g/dL (3.5-5.0) RAIZA CALDERON MD Aug 30, 2024 12:48
--- NOTE | 2024-08-30 14:29 | NUR ---
DCP: HOME Pt currently lives with sps in their home. Pt uses a walker and wheelchair at home to ambulate. Pt states that she has a provider that works with her for 6hrs a day and she assists with home management and meals. PCP is Dr. Menendez and uses [facility] for any RX needs. At [place] pt will want to go home and family can assist with transportation. Addendum: 08/30/24 at 1433 by HALEY RAHMAN SS Amended: Links added.
[2024-08-30] MEDS: ENOXAPARIN SODIUM 60 MG/0.6 ML SQ SCH (18:29)
--- NOTE | 2024-08-30 20:00 | PN ---
MEDICAL MANAGEMENT NOTE DATE OF SERVICE: 08/30/2024. SUBJECTIVE: The patient is seen and examined at bedside today. The patient has no fever, no chills. Remains in ICU. The patient denied bradycardia. No orthopnea, no PND. No dysuria or urinary frequency. Denies rashes or itchiness. Her EKG today shows sinus bradycardia. PHYSICAL EXAMINATION: VITAL SIGNS: Temperature 97.1. EYES: No icterus. Pupils equal and reactive. HENT: No oral thrush seen. Moist oral mucosa. NECK: Supple, no JVD or thyromegaly. LUNGS: Good air entry. No rales, no rhonchi. CARDIOVASCULAR: S1, S2 regular. No murmur heard. ABDOMEN: Full, soft, nontender. Bowel sound is present. CENTRAL NERVOUS SYSTEM: Awake, alert, oriented x 3. No focal deficits. SKIN: No rashes, no itchiness. LYMPHATIC: No peripheral lymphadenopathy. BACK: No deformity, no pressure ulcer. HEMATOLOGIC: No bleeding or petechial lesions seen. MUSCULOSKELETAL: No joint swelling, erythema, or tenderness. VASCULAR: No ischemia, no gangrene of extremities. ASSESSMENT: An 83-year-old female presented with palpitation. CURRENT PROBLEMS: Include: * Atrial fibrillation. * Medication-induced bradycardia. * Hypothyroidism. * Right breast cancer. * Underlying immunosuppression. * Debility. * Dehydration. * Acute renal failure. PLAN: * Continue critical care support. * Continue pain management. * Continue antiemetic. * Monitor electrolytes. * Continue GI prophylaxis. * Continue DVT prophylaxis. * The patient will be followed up closely. TID: [id number] RECEIPT: [id number]
[2024-08-30] MEDS: SYMBICORT IH SCH (21:00)
[2024-08-30] MEDS: LATANOPROST 2.5 ML DROPS OS SCH (21:33)
[2024-08-30] MEDS: DORZOLAMIDE HCL/TIMOLOL MALEAT DROPS 10 ML BOTTLE OS SCH (21:33)
[2024-08-31] VITALS (10 sets, daily range): BP systolic 101–145; BP diastolic 38–86; PULSE 45–72; RESP 16–18; TEMP 97.6–98.6; O2SAT 97–98
[2024-08-31 03:54] LABS: NUCLEATED RED BLOOD CELLS 0.0 % (0.0-0.19); PLATELET COUNT (AUTO) 262 K/uL (130-400); RED BLOOD CELL COUNT(AUTO) 2.98 MIL/uL (4.00-5.50); RED CELL DISTRIBUTION WIDTH 13.8 % (11.0-15.5); WHITE BLOOD COUNT (AUTO) 6.7 K/uL (4.8-10.8)
[2024-08-31 04:27] LABS: CREATININE 1.3 mg/dL (0.5-1.0); GLOMERULAR FILTR. RATE CALC 41.0 mL/min (>90); GLUCOSE,RANDOM 89.0 mg/dL (70-105); SODIUM SERUM 141.0 mmol/L (136-145); UREA NITROGEN, BLOOD 39.0 mg/dL (7-18)
--- NOTE | 2024-08-31 08:11 | EKG ---
[facility] Test Date: 2024-08-29 Test Time: 17:14:34 Pat Name: EMMIE BENJAMIN Department: [facility] Room: 203 1 Gender: F Director Of Sales Support: [id number] : 1940 Requested By: JOSI TAY Order Number: [id number] Reading MD: Marissa Roy Measurements Intervals [place] Rate: 87 P: 0 IL: 0 QRS: -58 QRSD: 125 T: 92 QT: 394 QTc: 474 Interpretive Statements Atrial fibrillation Left bundle branch block ST elevation secondary to IVCD Compared to ECG 08/26/2023 15:45:38 Left bundle-branch block now present Intraventricular conduction delay now present Sinus bradycardia no longer present Possible ischemia no longer present ST (T wave) deviation still present Electronically Signed On 08-31-2024 12:28:09 CDT by Marissa Roy Please click the below link to view image of tracing.
[2024-08-31] MEDS: (Fluticasone/Umeclidin/Vilanter (Trelegy Ellipta 100-62.5-25MCG) IH SCH (09:00)
--- NOTE | 2024-08-31 09:03 | PN ---
[facility] CARDIOLOGY PROGRESS NOTE Date Patient Seen: Aug 31, 2024 Time of Visit: 08:45 Interval History: This 83-year-old Latin-Algerian female, patient of mine at the [facility], has a history of essential hypertension, hyperlipidemia, type 2 diabet es, stage III chronic renal insufficiency, HFpEF with LVEF of 55-60% by 2D echo 05/29/2024, tachycardia-bradycardia syndrome, paroxysmal atrial fibrillation on chronic amiodarone 100 mg daily, long-term Eliquis anticoagulation at an age and weight adjusted dose, presents with an episode of palpitations with rapid heart rate at home associated with chest pressure for which she took extra metoprolol tartrate 50 mg. She subsequently converted to sinus rhythm and had sinus bradycardia at 39 beats per minute and presented to the emergency room for further assessment. Thus far the patient has had resting sinus bradycardia with heart rates in the 40-50 beat per minute range. She has had no recurrent atrial fibrillation. Cardiology was consulted for treatment recommendations. Physical Examination: GENERAL: No acute distress. HEAD: Normal with no signs of head trauma. EYES: PERRLA, EOMI, conjunctiva and sclera normal. NECK: Supple without JVD. There is no tenderness, lymphadenopathy, or masses. No thyromegaly. Normal carotid upstrokes without bruits. LUNGS: Clear breath sounds bilaterally. No wheezes, or rhonchi. HEART: Normal rate and rhythm. Normal S1 and S2 without murmurs, gallop or rub. VASC: Peripheral pulses +2 bilaterally. EXT: No clubbing, cyanosis or edema. NEURO: Awake, alert, and oriented x3. No focal neurological deficits noted. Laboratory: Hematology Labs: Test 08/31/24 03:41 08/30/24 06:02 Range/Units White Blood Count 6.7 4.8-10.8 K/uL Red Blood Count 2.98 L 4.00-5.50 MIL/uL Hemoglobin 8.4 L 12.0-16.0 g/dL Hematocrit 27.2 L 36-48 % Mean Corpuscular Volume 91.3 79-99 fL Mean Corpuscular Hemoglobin 28.2 27.0-33.0 pg Mean Corpuscular Hemoglobin Concent 30.9 L 32.0-36.0 g/dL Red Cell Distribution Width 13.8 11.0-15.5 % Platelet Count 262 130-400 K/uL Mean Platelet Volume 8.7 7.5-10.5 fL Nucleated Red Blood Cells 0.0 0.0-0.19 % Red Blood Cell Morphology See comments Immature Granulocyte % (Auto) 0.6 0-1 % Neutrophils (%) (Auto) 62.1 40.0-77.0 % Lymphocytes (%) (Auto) 23.5 21.0-51.0 % Monocytes (%) (Auto) 10.0 3.0-13.0 % Eosinophils (%) (Auto) 3.3 0.0-8.0 % Basophils (%) (Auto) 0.5 0.0-5.0 % Neutrophils # (Auto) 3.9 1.8-7.7 K/uL Lymphocytes # (Auto) 1.5 1.0-4.8 K/uL Monocytes # (Auto) 0.6 0.1-1.0 K/uL Eosinophils # (Auto) 0.21 0.00-0.70 K/uL Basophils # (Auto) 0.03 0.00-0.20 K/uL Absolute Immature Granulocyte (auto 0.04 0-1 K/uL Chemistry Labs: Test 08/31/24 03:41 08/30/24 06:02 08/29/24 18:21 Range/Units Sodium Level 141 136-145 mmol/L Potassium Level 3.9 3.5-5.1 mmol/L Chloride Level 106 101-111 mmol/L Carbon Dioxide Level 29 21-32 mmol/L Blood Urea Nitrogen 39 H 7-18 mg/dL Creatinine 1.3 H 0.5-1.0 mg/dL Glomerular Filtration Rate Calc 41 >90 mL/min Random Glucose 89 70-105 mg/dL Total Calcium 8.5 8.5-10.1 mg/dL Magnesium Level 2.50 H 1.80-2.40 mg/dL Thyroid Stimulating Hormone (TSH) 2.25 # 0.36-3.74 uIU/mL Free Thyroxine (T4) Direct 1.60 H 0.76-1.46 ng/dL Free Triiodothyronine (T3) pg/mL 1.31 L 2.18-3.98 pg/mL Whole Blood Glucose 91 70-110 MG/DL Hemoglobin A1c 5.3 4.0-6.0 % Estimated Average Glucose (eAG) 105 70-126 mg/dL Total Bilirubin 0.5 0.2-1.0 mg/dL Aspartate Amino Transf (AST/SGOT) 17 10-37 U/L Alanine Aminotransferase (ALT/SGPT) 13 12-78 U/L Alkaline Phosphatase 72 50-136 U/L Total Protein 7.3 6.0-8.3 g/dL Albumin 2.7 L 3.5-5.0 g/dL Troponin I High Sensitivity 145 *H 4-50 ng/L Coagulation Labs: Test 08/29/24 16:27 Range/Units Prothrombin Time 11.1 9.6-11.6 SEC Prothromb Time International Ratio 1.05 0.85-1.15 Diagnostics / Radiology: Impression and Plan: Tachycardia-bradycardia syndrome: Paroxysmal atrial fibrillation on long-term Eliquis anticoagulation and low-dose amiodarone antiarrhythmic therapy: -the patient is not willing to undergo permanent pacemaker insertion at this time -during episodes of atrial fibrillation she typically takes an extra 25 mg of metoprolol (beyond her usual dose of metoprolol tartrate 12.5 mg b.i.d.). On this occasion she took an extra 50 mg of metoprolol because of continued palpitations, chest pressure, and rapid ventricular response -await consultation from Dr. Castillo Rader. If she continues to decline permanent pacemaker continue present home medical regimen and cleared for discharge home from my viewpoint -TSH is normal. -troponins 135 and 145 Nonspecific troponin elevations in the setting of rapid atrial fibrillation: -continue present risk factor modification Long-term Eliquis anticoagulation at await an age adjusted dose: -resume Eliquis upon discharge at usual home dose Comorbidities: Essential hypertension Hyperlipidemia Type 2 diabetes Stage III chronic renal insufficiency HFpEF with LVEF of 55-60% by 2D echo 05/29/2024 History of GI bleeding, refusing GI evaluation/hypochromic anemia Breast cancer on chronic immunotherapy KYREE CHOUDHURY MD Aug 31, 2024 09:03
[2024-08-31] MEDS: DOXAZOSIN MESYLATE 2 MG TABLET PO SCH (09:12)
--- NOTE | 2024-08-31 12:08 | PN ---
INFECTIOUS DISEASE PROGRESS NOTE Date of Service: Aug 31, 2024 SUBJECTIVE: This is an 83-year-old female patient with medical history of right breast CA, on oral chemotherapy, hypertension and atrial fibrillation who presented to the hospital with chief complaints of palpitation. Patient is on both Eliquis and metoprolol and reported that she took an extra dose of the metoprolol when she felt the palpitations. On admission to the hospital patient's heart rate went down to the 30s. Air Gun Operator has evaluated patient and recommended a pacemaker, currently however patient is declining pacemaker placement. Heart rate still in the 40s and 50s. We will continue to monitor patient and plan to discharge tomorrow if the heart rate improved. PHYSICAL EXAM EYES: Anicteric. Pupils equal and reactive. HENT: No oral thrush seen, moist Oral mucosa. NECK: Supple, no JVD or thyromegaly. LUNGS: Good air entry. No rales, no rhonchi. CARDIOVASCULAR: S1, S2 regular. No murmur heard. Bradycardia. ABDOMEN: Soft, non tender, bowel sounds present, no organomegaly. CENTRAL NERVOUS SYSTEM: Awake, alert, oriented x 3. SKIN: No rashes, no swelling. LYMPHATICS: No peripheral lymphadenopathy. MUSCULOSKELETAL: No joint swelling, erythema or tenderness. EXTREMITIES: No cyanosis or clubbing. BACK: No deformity, no pressure ulcer. GENITOURINARY: No dysuria or hematuria. Vital Sign (Last 12 Hours) 08/31/24 08/31/24 08/31/24 08/31/24 03:00 03:45 07:00 11:00 Temp 98.2 98.1 98.6 Pulse 46 45 56 Resp 18 16 16 B/P (MAP) 101/41 110/54 145/86 126/38 Pulse Ox 97 99 98 O2 Delivery Room Air Room Air Room Air Intake & Output (last 24hrs) 08/30/24 08/30/24 08/31/24 15:00 23:00 07:00 Intake Total 565 ml 660 ml Balance 565 ml 660 ml LABS: Laboratory: Test 08/31/24 03:41 08/30/24 06:02 08/29/24 20:11 08/29/24 18:21 Range/Units White Blood Count 6.7 4.8-10.8 K/uL Red Blood Count 2.98 L 4.00-5.50 MIL/uL Hemoglobin 8.4 L 12.0-16.0 g/dL Hematocrit 27.2 L 36-48 % Mean Corpuscular Volume 91.3 79-99 fL Mean Corpuscular Hemoglobin 28.2 27.0-33.0 pg Mean Corpuscular Hemoglobin Concent 30.9 L 32.0-36.0 g/dL Red Cell Distribution Width 13.8 11.0-15.5 % Platelet Count 262 130-400 K/uL Mean Platelet Volume 8.7 7.5-10.5 fL Nucleated Red Blood Cells 0.0 0.0-0.19 % Red Blood Cell Morphology See comments Sodium Level 141 136-145 mmol/L Potassium Level 3.9 3.5-5.1 mmol/L Chloride Level 106 101-111 mmol/L Carbon Dioxide Level 29 21-32 mmol/L Blood Urea Nitrogen 39 H 7-18 mg/dL Creatinine 1.3 H 0.5-1.0 mg/dL Glomerular Filtration Rate Calc 41 >90 mL/min Random Glucose 89 70-105 mg/dL Total Calcium 8.5 8.5-10.1 mg/dL Magnesium Level 2.50 H 1.80-2.40 mg/dL Thyroid Stimulating Hormone (TSH) 2.25 # 0.36-3.74 uIU/mL Free Thyroxine (T4) Direct 1.60 H 0.76-1.46 ng/dL Free Triiodothyronine (T3) pg/mL 1.31 L 2.18-3.98 pg/mL Immature Granulocyte % (Auto) 0.6 0-1 % Neutrophils (%) (Auto) 62.1 40.0-77.0 % Lymphocytes (%) (Auto) 23.5 21.0-51.0 % Monocytes (%) (Auto) 10.0 3.0-13.0 % Eosinophils (%) (Auto) 3.3 0.0-8.0 % Basophils (%) (Auto) 0.5 0.0-5.0 % Neutrophils # (Auto) 3.9 1.8-7.7 K/uL Lymphocytes # (Auto) 1.5 1.0-4.8 K/uL Monocytes # (Auto) 0.6 0.1-1.0 K/uL Eosinophils # (Auto) 0.21 0.00-0.70 K/uL Basophils # (Auto) 0.03 0.00-0.20 K/uL Absolute Immature Granulocyte (auto 0.04 0-1 K/uL Whole Blood Glucose 91 70-110 MG/DL Hemoglobin A1c 5.3 4.0-6.0 % Estimated Average Glucose (eAG) 105 70-126 mg/dL Total Bilirubin 0.5 0.2-1.0 mg/dL Aspartate Amino Transf (AST/SGOT) 17 10-37 U/L Alanine Aminotransferase (ALT/SGPT) 13 12-78 U/L Alkaline Phosphatase 72 50-136 U/L Total Protein 7.3 6.0-8.3 g/dL Albumin 2.7 L 3.5-5.0 g/dL Urine Color COLORLESS YELLOW Urine Appearance CLEAR CLEAR Urine pH 7.5 5.0-8.0 Urine Specific [place] 1.008 1.001-1.031 Urine Protein NEGATIVE NEGATIVE mg/dL Urine Glucose (UA) NEGATIVE NEGATIVE mg/dL Urine Ketones NEGATIVE NEGATIVE mg/dL Urine Occult Blood NEGATIVE NEGATIVE Urine Nitrate NEGATIVE NEGATIVE Urine Bilirubin NEGATIVE NEGATIVE mg/dL Urine Urobilinogen 0.2 0.2-1.0 mg/dL Urine Leukocyte Esterase NEGATIVE NEGATIVE Michael/uL Urine RBC 2-5 H 0-1 /HPF Urine WBC 0-1 0-1 /HPF Urine Squamous Epithelial Cells FEW 0-2 /HPF Urine Bacteria FEW None Seen /HPF Troponin I High Sensitivity 145 *H 4-50 ng/L Test 08/29/24 16:27 Range/Units Prothrombin Time 11.1 9.6-11.6 SEC Prothromb Time International Ratio 1.05 0.85-1.15 ASSESSMENT: Medication-induced bradycardia. Atrial fibrillation. Right breast cancer. Underlying immunosuppression. Dehydration. Acute renal failure, improving. PLAN: Home medications have been reviewed and reconciled. Continue antiarrhythmic. Air Gun Operator following patient. Will monitor electrolytes. We will plan to discharge tomorrow if continues to decline pacemaker and if stable. This case was reviewed and discussed with my supervising physician and the above assessment and plan was formulated and agreed upon. ATTESTATION BY PHYSICIAN I have seen and examined the patient. I reviewed the documentation, medical decision making, and treatment plan as noted by the mid-level provider above. I agree with the findings and plan of care. JOSI TAY MD, [facility] Aug 31, 2024 12:08
[2024-08-31] MEDS: PROPAFENONE HCL 150 MG TABLET PO SCH (12:33)
--- NOTE | 2024-08-31 14:05 | PN ---
This is a n 83y/o female with a past medical history of Coronary artery disease. It seems the patient was admitted to the hospital with shortness of breath. Patient was called. Patient with bradycardia/tacky syndrome. Patient was evaluated by cardiology and their plan for possible pacemaker insertion. This patient with past medical history significant for breast cancer with the patient follow-up with Dr. Vega and was [facility]. It seems the patient was not a candidate for any chemo. Patient receiving hormonal therapy treatment with anastrozole. Stop the anastrozole during admission This patient supposed to have pacemaker yesterday but the family opted to do it. There is plan for treatment patient medically Physical Exam: General: Alert and oriented. NAD. Chronically ill appearing. Frail. HEENT: NC/AT. Oral mucosa is moist. Neck: No masses, JVD, or carotid bruits Lungs: NRD. SCM. Bilaterally CTA. No obvious wheezing, rales or rhonchi. Cardio: Bradycardiac noted. Normal S1 and S2. +S4. PMI was not displaced. Abdomen: Soft. NT. ND. Normal active bowel sounds x 4 quadrants. Extremities: Diminished throughout. No edema, clubbing, or cyanosis. Neuro: CN II-XII were grossly intact. No focal deficits. Assessment 1. Anemia. Hemoglobin level is stable at 8.4 g/deciliter 2. Chronic renal insufficiency 3. History of breast cancer with the patient on hormonal therapy treatment with anastrozole. Patient follows with Dr. Marin from [facility]. 4. Shortness of breath 5. Failure to thrive Plan 1. Continue to hold her hormonal therapy treatment with anastrozole while she is in the hospital. 2. Since the family does not want to do pacemaker. Leticia is fine from my point of view. 3. I have long discussion with the patient and family member regarding the plan of care. I answer all question and concern and I spent more than 35 minutes. I discussed the case with her oncologist to agree on the plan of care. 4. This patient with anemia of chronic disease. So this patient could benefit actually from Procrit 20,000 units subcu. 5. There was hypersegmented neutrophils. This patient to be started on folic acid 1 mg p.o. daily and vitamin B12 1000 mcg p.o. daily. Vitals/Labs Vital Signs Date Time Temp Pulse Resp B/P (MAP) Pulse Ox O2 Delivery O2 Flow Rate FiO2 08/31/24 11:00 98.6 56 16 126/38 98 Room Air 08/30/24 21:30 0 21 Laboratory Tests 08/31/24 03:41 Medications Current Medications Insulin Human Lispro INSULIN SLIDING SCAL... ACHS SQ; Start 08/29/24 at 21:00; Stop 08/30/24 at 16:13; Status DC Furosemide 20 mg DAILY PO Last administered on 08/31/24at 09:12; Start 08/31/24 at 09:00; Stop 09/30/24 at 08:59 Latanoprost 1 DROP HS OS Last administered on 08/30/24at 21:33; Start 08/30/24 at 21:00; Stop 09/29/24 at 20:59 Doxazosin Mesylate 4 mg DAILY PO Last administered on 08/31/24at 09:12; Start 08/31/24 at 09:00; Stop 09/30/24 at 08:59 Home Med (Fluticasone/ Umeclidin/ Vilan... DAILY IH; Start 08/31/24 at 09:00; Stop 09/30/24 at 08:59 Atorvastatin Calcium 10 mg HS PO Last administered on 08/30/24at 21:31; Start 08/30/24 at 21:00; Stop 09/29/24 at 20:59 Dorzolamide/ Timolol 1 DROP BID OS Last administered on 08/31/24at 09:19; Start 08/30/24 at 21:00; Stop 09/29/24 at 20:59 Home Med ([symbicort] 2 PUFF) BID IH; Start 08/30/24 at 21:00; Stop 09/29/24 at 20:59 Enoxaparin Sodium 60 mg Q24H SQ Last administered on 08/30/24at 18:29; Start 08/30/24 at 18:00; Stop 09/29/24 at 17:59 Propafenone HCl 75 mg BID PO Last administered on 08/31/24at 12:33; Start 08/31/24 at 11:00; Stop 09/30/24 at 10:59 Diltiazem HCl 30 mg TID PO; Start 08/31/24 at 14:00; Stop 09/30/24 at 13:59 RAIZA HERNÁNDEZ MD Aug 31, 2024 14:05
--- NOTE | 2024-08-31 14:12 | CONS ---
HPI: This is an 83-year-old female with a history of paroxysmal atrial fibrillation status post cardioversion in August 2023, hypertension, hyperlipidemia, recurrent GI bleeding and breast cancer on immunotherapy. She was admitted 08/29/2024 due to symptomatic bradycardia that developed after taking an additional dose of metoprolol for management of atrial fibrillation with rapid ventricular response. Her initial EKG 08/29/2024 showed atrial fibrillation with IVCD, ventricular rate 88 bpm. Subsequent EKG 08/30/2024 showed sinus bradycardia with a ventricular rate of 39 bpm. Metoprolol tartrate 50 mg and amiodarone 100 mg were held on admission. She is currently in sinus bradycardia with ventricular rates in the 40s. Her most recent blood pressure is 126/38. Chest x-ray on admission showed stable left basilar opacity likely combination of effusion and infiltrate. Her most recent echocardiogram 05/29/2024 demonstrates an ejection fraction of 55 to 60% with aortic valve sclerosis without stenosis, severely dilated left atrium and grade 3 diastolic dysfunction. White blood count 6.7, hemoglobin 8.4 down from 9.1, hematocrit 27.2, platelets 262, creatinine 1.3 down from 1.6, potassium 3.9, magnesium 2.50, TSH 2.25, free T41.60, free T31.31. She reports having episodes of atrial fibrillation at least once every 2 weeks. She typically takes an additional dosage of metoprolol 50 mg and the arrhythmia resolves. She reported heart rates up to the 150s which prompted her to present to the emergency department. She was found to be bradycardic after being admitted. She denies dizziness, syncope or near syncope associated with the bradycardia. Review of in office progress notes showed resting heart rates in the upper 40s-50s. Patient History: PAST MEDICAL HISTORY: As noted above. SOCIAL HISTORY: She does not smoke or drink alcohol. SURGICAL HISTORY: Cholecystectomy . Allergies: Coded Allergies: Penicillins (Unverified Allergy, Unknown, 05/14/17) cephalexin (Unverified Allergy, Unknown, 05/14/17) levofloxacin (Unverified Allergy, Unknown, 05/14/17) Additional RoS: negative with the exception of HPI Vital Signs Vital Signs 08/30/24 08/31/24 21:30 11:00 Temp 98.6 Pulse 56 Resp 16 B/P (MAP) 126/38 Pulse Ox 98 O2 Delivery Room Air O2 Flow Rate 0 FiO2 21 Appearance: Well dev, well nourished Eyes: EOM Normal, Normal Conjuctivae/eyelid Ear/Nose/Mouth/Throat: Landmarks WNL Neck: Symmetric, trach midline Cardiovascular: Abnormal (bradycardic) Respiratory: Lungs clear Laboratory Tests Test 08/29/24 16:27 08/29/24 18:21 08/29/24 20:11 08/29/24 21:36 Range/Units White Blood Count 6.9 4.8-10.8 K/uL Red Blood Count 3.48 4.00-5.50 MIL/uL Hemoglobin 9.8 12.0-16.0 g/dL Hematocrit 31.3 36-48 % Mean Corpuscular Volume 89.9 79-99 fL Mean Corpuscular Hemoglobin 28.2 27.0-33.0 pg Mean Corpuscular Hemoglobin Concent 31.3 32.0-36.0 g/dL Red Cell Distribution Width 13.9 11.0-15.5 % Platelet Count 315 130-400 K/uL Mean Platelet Volume 8.9 7.5-10.5 fL Immature Granulocyte % (Auto) 0.4 0-1 % Neutrophils (%) (Auto) 75.4 40.0-77.0 % Lymphocytes (%) (Auto) 14.2 21.0-51.0 % Monocytes (%) (Auto) 7.7 3.0-13.0 % Eosinophils (%) (Auto) 1.9 0.0-8.0 % Basophils (%) (Auto) 0.4 0.0-5.0 % Neutrophils # (Auto) 5.2 1.8-7.7 K/uL Lymphocytes # (Auto) 1.0 1.0-4.8 K/uL Monocytes # (Auto) 0.5 0.1-1.0 K/uL Eosinophils # (Auto) 0.13 0.00-0.70 K/uL Basophils # (Auto) 0.03 0.00-0.20 K/uL Absolute Immature Granulocyte (auto 0.03 0-1 K/uL Nucleated Red Blood Cells 0.0 0.0-0.19 % Prothrombin Time 11.1 9.6-11.6 SEC Prothromb Time International Ratio 1.05 0.85-1.15 Sodium Level 138 136-145 mmol/L Potassium Level 4.0 3.5-5.1 mmol/L Chloride Level 101 101-111 mmol/L Carbon Dioxide Level 29 21-32 mmol/L Blood Urea Nitrogen 44 7-18 mg/dL Creatinine 1.6 0.5-1.0 mg/dL Glomerular Filtration Rate Calc 32 >90 mL/min Random Glucose 173 70-105 mg/dL Total Calcium 9.3 8.5-10.1 mg/dL Magnesium Level 2.70 1.80-2.40 mg/dL Troponin I High Sensitivity 135 145 4-50 ng/L Urine Color COLORLESS YELLOW Urine Appearance CLEAR CLEAR Urine pH 7.5 5.0-8.0 Urine Specific [place] 1.008 1.001-1.031 Urine Protein NEGATIVE NEGATIVE mg/dL Urine Glucose (UA) NEGATIVE NEGATIVE mg/dL Urine Ketones NEGATIVE NEGATIVE mg/dL Urine Occult Blood NEGATIVE NEGATIVE Urine Nitrate NEGATIVE NEGATIVE Urine Bilirubin NEGATIVE NEGATIVE mg/dL Urine Urobilinogen 0.2 0.2-1.0 mg/dL Urine Leukocyte Esterase NEGATIVE NEGATIVE Michael/uL Urine RBC 2-5 0-1 /HPF Urine WBC 0-1 0-1 /HPF Urine Squamous Epithelial Cells FEW 0-2 /HPF Urine Bacteria FEW None Seen /HPF Whole Blood Glucose 151 70-110 MG/DL Test 08/30/24 06:02 08/31/24 03:41 Range/Units White Blood Count 6.3 6.7 4.8-10.8 K/uL Red Blood Count 3.21 2.98 4.00-5.50 MIL/uL Hemoglobin 9.1 8.4 12.0-16.0 g/dL Hematocrit 29.2 27.2 36-48 % Mean Corpuscular Volume 91.0 91.3 79-99 fL Mean Corpuscular Hemoglobin 28.3 28.2 27.0-33.0 pg Mean Corpuscular Hemoglobin Concent 31.2 30.9 32.0-36.0 g/dL Red Cell Distribution Width 13.8 13.8 11.0-15.5 % Platelet Count 271 262 130-400 K/uL Mean Platelet Volume 8.4 8.7 7.5-10.5 fL Immature Granulocyte % (Auto) 0.6 0-1 % Neutrophils (%) (Auto) 62.1 40.0-77.0 % Lymphocytes (%) (Auto) 23.5 21.0-51.0 % Monocytes (%) (Auto) 10.0 3.0-13.0 % Eosinophils (%) (Auto) 3.3 0.0-8.0 % Basophils (%) (Auto) 0.5 0.0-5.0 % Neutrophils # (Auto) 3.9 1.8-7.7 K/uL Lymphocytes # (Auto) 1.5 1.0-4.8 K/uL Monocytes # (Auto) 0.6 0.1-1.0 K/uL Eosinophils # (Auto) 0.21 0.00-0.70 K/uL Basophils # (Auto) 0.03 0.00-0.20 K/uL Absolute Immature Granulocyte (auto 0.04 0-1 K/uL Nucleated Red Blood Cells 0.0 0.0 0.0-0.19 % Sodium Level 140 141 136-145 mmol/L Potassium Level 3.8 3.9 3.5-5.1 mmol/L Chloride Level 104 106 101-111 mmol/L Carbon Dioxide Level 30 29 21-32 mmol/L Blood Urea Nitrogen 40 39 7-18 mg/dL Creatinine 1.6 1.3 0.5-1.0 mg/dL Glomerular Filtration Rate Calc 32 41 >90 mL/min Whole Blood Glucose 91 70-110 MG/DL Random Glucose 97 89 70-105 mg/dL Hemoglobin A1c 5.3 4.0-6.0 % Estimated Average Glucose (eAG) 105 70-126 mg/dL Total Calcium 9.3 8.5 8.5-10.1 mg/dL Magnesium Level 2.70 2.50 1.80-2.40 mg/dL Total Bilirubin 0.5 0.2-1.0 mg/dL Aspartate Amino Transf (AST/SGOT) 17 10-37 U/L Alanine Aminotransferase (ALT/SGPT) 13 12-78 U/L Alkaline Phosphatase 72 50-136 U/L Total Protein 7.3 6.0-8.3 g/dL Albumin 2.7 3.5-5.0 g/dL Red Blood Cell Morphology See comments Thyroid Stimulating Hormone (TSH) 2.25 0.36-3.74 uIU/mL Free Thyroxine (T4) Direct 1.60 0.76-1.46 ng/dL Free Triiodothyronine (T3) pg/mL 1.31 2.18-3.98 pg/mL ASSESSMENT: 1. Paroxysmal atrial fibrillation. 2. Sinus bradycardia. 3. Type 2 diabetes mellitus. 4. Hypertension. 5. Recurrent GI bleeding. PLAN: Discussed with Dr. Rader. 1. 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 She has been maintained on amiodarone 100 mg once daily and metoprolol tartrate 50 mg once daily as an outpatient. She developed marked bradycardia after taking additional doses of metoprolol 50 mg in the setting of AF RVR. 2. We recommend dual-chamber pacemaker insertion to enable optimal medical therapy for her atrial fibrillation. She states that she needs time to think about the pacemaker prior to proceeding. 3. In the meantime, we will initiate low-dose propafenone 75 mg twice daily and diltiazem 30 mg 3 times daily. If this is effective at maintaining sinus rhythm without inducing significant bradycardia, we would be able to defer permanent pacing. 4. We will monitor her rhythm over the next 24 hours. If she remains stable, we anticipate discharge home tomorrow. 5. We will resume Eliquis 2.5 mg twice daily prior to discharge. SUHAS CHAMPION Aug 31, 2024 14:12
[2024-09-01] VITALS (16 sets, daily range): BP systolic 105–127; BP diastolic 54–71; PULSE 49–130; RESP 16–18; TEMP 98–99.1; O2SAT 97–98
--- NOTE | 2024-09-01 03:55 | NUR ---
Tele note Pt running SB from most of shift. Pt shot up to ST 130s at this time. Pt was asleep, asymptomatic. Pt went back down to SR after 2-3 minutes. Addendum: 09/01/24 at 0505 by MARLENY DENSON LVN LVN 0440 Pt is noticed in 130s. Pt states she feels palpitations. Visualized tele strip showing afib 130s. 12 lead EKG done to confirm shows afib rvr. Cardizem PO unable to be given prior due to low HR given to pt. Pt stays she feels the palpitations passing. Denies any CP, SOB. Addendum: 09/01/24 at 0523 by MARLENY DENSON LVN LVN 0520 Pending [facility] page back. Pt currently running 110-120s afib, per television picture tube rebuilder no longer in 130s-140s. Pt states her palpitations have not come back since passing.
--- NOTE | 2024-09-01 04:50 | EKG ---
[facility] Test Date: 2024-09-01 Test Time: 04:50:09 Pat Name: EMMIE BENJAMIN Department: 2A Room: 203 1 Gender: F [employer] Mate: DANA : 1940 Requested By: KYREE CHOUDHURY Order Number: [id number] Reading MD: Kit Davis Measurements Intervals [place] Rate: 132 P: 0 HI: 0 QRS: -69 QRSD: 120 T: 113 QT: 296 QTc: 438 Interpretive Statements Atrial fibrillation with rapid ventricular response Left axis deviation Incomplete left bundle branch block Marked ST abnormality, possible lateral subendocardial injury Compared to ECG 08/30/2024 04:55:58 Left bundle-branch block now present ST (T wave) deviation now present 2:1 AV block no longer present T-wave abnormality no longer present Electronically Signed On 09-01-2024 12:00:38 CDT by Kit Davis Please click the below link to view image of tracing.
--- NOTE | 2024-09-01 07:20 | NUR ---
[facility] page Dr. Davis made aware of pt cardiac hx as well as of tele events, ekg, and cardizem PO given. Per cardiology, current afib [address] Rader to see pt today to review.
[2024-09-01 07:43] LABS: NUCLEATED RED BLOOD CELLS 0.0 % (0.0-0.19); PLATELET COUNT (AUTO) 262.0 K/uL (130-400); RED BLOOD CELL COUNT(AUTO) 3.2 MIL/uL (4.00-5.50); RED CELL DISTRIBUTION WIDTH 13.7 % (11.0-15.5); WHITE BLOOD COUNT (AUTO) 7.2 K/uL (4.8-10.8)
[2024-09-01 07:50] LABS: CREATININE 1.3 mg/dL (0.5-1.0); GLOMERULAR FILTR. RATE CALC 41.0 mL/min (>90); GLUCOSE,RANDOM 105.0 mg/dL (70-105); SODIUM SERUM 142.0 mmol/L (136-145); UREA NITROGEN, BLOOD 31.0 mg/dL (7-18)
[2024-09-01 08:02] LABS: INR 1.03 (0.85-1.15)
--- NOTE | 2024-09-01 10:20 | PN ---
This is an 83-year-old female with a history of paroxysmal atrial fibrillation status post cardioversion in August 2023, hypertension, hyperlipidemia, chronic kidney disease, recurrent GI bleeding and breast cancer on immunotherapy. She was admitted 08/29/2024 secondary to atrial fibrillation with rapid ventricular response. She became bradycardic due to taking an additional dose of metoprolol tartrate 50 mg once daily. Both metoprolol tartrate 50 mg and amiodarone 100 mg were held on admission. Yesterday, she was started on low-dose propafenone 75 mg once daily and diltiazem 30 mg every 8 hours. Apparently diltiazem 30 mg was held overnight due to heart rates in the 49-51 beat per minute range. At approximately 3:00 a.m., she had recurrent atrial fibrillation with rapid ventricular response with ventricular rates in the 120s to 130s. She received the diltiazem 30 mg at 4:50 a.m.. EKG performed this morning shows atrial fibrillation with a ventricular rate of 132 beats per minute. She is currently in atrial fibrillation with ventricular rates in the 120s. Her most recent blood pressure is 111/62. Her most recent echocardiogram 05/29/2024 demonstrates an ejection fraction of 55 to 60% with aortic valve sclerosis without stenosis, severely dilated left atrium and grade 3 diastolic dysfunction. White blood count 7.2, hemoglobin 9.0, hematocrit 28.9, platelets 262, creatinine 1.3, potassium 3.8. She reports palpitations but otherwise denies shortness of breath, weakness or dizziness. On exam, she is in no acute distress irregularly irregular rhythm, lungs are clear to auscultation bilaterally. Assessment: 1. Paroxysmal atrial fibrillation. 2. Sinus bradycardia. 3. Type 2 diabetes mellitus. 4. Hypertension. 5. Recurrent GI bleeding. Plan: 1. She has recurrent atrial fibrillation with rapid ventricular response with bradycardia secondary to medical therapy. Amiodarone 100 mg once daily metoprolol tartrate 50 mg once daily were held on admission. Yesterday she was started on propafenone 75 mg twice daily and diltiazem 30 mg 3 times daily. Overnight, diltiazem was held due to bradycardia and she developed recurrent atrial fibrillation around 3:00 a.m.. She is currently in atrial fibrillation with ventricular rates in the 120s. 2. Yesterday we recommended dual-chamber pacemaker insertion to enable optimal medical therapy for her atrial fibrillation. She needed time to think about this. Her and her son were advised that we will continue with propafenone 75 mg twice daily and titrate diltiazem 30 mg to every 6 hours. However, if the arrhythmias poorly controlled and/or she becomes bradycardic with titration of the diltiazem, we will have further discussion regarding pacemaker insertion. 3. Continue Lovenox 60 mg once daily for stroke protection in the setting of atrial fibrillation. Transition back to Eliquis 2.5 mg twice daily prior to discharge. Vitals/Labs Vital Signs Date Time Temp Pulse Resp B/P (MAP) Pulse Ox O2 Delivery O2 Flow Rate FiO2 09/01/24 07:00 98 16 111/62 96 Room Air 09/01/24 03:00 98.4 08/31/24 20:55 0 21 Laboratory Tests 09/01/24 07:38 SUHAS CHAMPION Sep 01, 2024 10:20
--- NOTE | 2024-09-01 13:09 | PN ---
INFECTIOUS DISEASE PROGRESS NOTE Date of Service: Sep 01, 2024 SUBJECTIVE: This is an 83-year-old female patient with medical history of right breast CA, on oral chemotherapy, hypertension and atrial fibrillation who presented to the hospital with chief complaints of palpitation. Patient over night had developed recurrent Afib early this morning. Patient was recommended pacemaker by cardiology as of yesterday. Meanwhile cardiology has adjusted medication and patient will continue to be followed. At this time patient denies chest pain. No shortness of breath. Patient is laying in bed in no distress. PHYSICAL EXAM EYES: Anicteric. Pupils equal and reactive. HENT: No oral thrush seen, moist Oral mucosa. NECK: Supple, no JVD or thyromegaly. LUNGS: Good air entry. No rales, no rhonchi. CARDIOVASCULAR: S1, S2 regular. No murmur heard. ABDOMEN: Soft, non tender, bowel sounds present, no organomegaly. CENTRAL NERVOUS SYSTEM: Awake, alert, oriented x 3. SKIN: No rashes, no swelling. LYMPHATICS: No peripheral lymphadenopathy. MUSCULOSKELETAL: No joint swelling, erythema or tenderness. EXTREMITIES: No cyanosis or clubbing. BACK: No deformity, no pressure ulcer. GENITOURINARY: No dysuria or hematuria. Vital Sign (Last 12 Hours) 09/01/24 09/01/24 09/01/24 09/01/24 03:00 03:05 03:49 03:50 Temp 98.4 Pulse 129 51 49 125 Resp 18 B/P (MAP) 127/69 Pulse Ox 97 O2 Delivery Room Air 09/01/24 09/01/24 09/01/24 09/01/24 03:55 04:40 05:10 06:00 Pulse 90 130 110 111 09/01/24 09/01/24 07:00 11:00 Temp 98.1 Pulse 98 106 Resp 16 17 B/P (MAP) 111/62 116/56 Pulse Ox 96 96 O2 Delivery Room Air Room Air Intake & Output (last 24hrs) 08/31/24 08/31/24 09/01/24 15:00 23:00 07:00 Intake Total 120 ml 100 ml Balance 120 ml 100 ml LABS: Laboratory: Test 09/01/24 07:38 08/31/24 19:15 08/31/24 03:41 Range/Units White Blood Count 7.2 4.8-10.8 K/uL Red Blood Count 3.20 L 4.00-5.50 MIL/uL Hemoglobin 9.0 L 12.0-16.0 g/dL Hematocrit 28.9 L 36-48 % Mean Corpuscular Volume 90.3 79-99 fL Mean Corpuscular Hemoglobin 28.1 27.0-33.0 pg Mean Corpuscular Hemoglobin Concent 31.1 L 32.0-36.0 g/dL Red Cell Distribution Width 13.7 11.0-15.5 % Platelet Count 262 130-400 K/uL Mean Platelet Volume 8.4 7.5-10.5 fL Nucleated Red Blood Cells 0.0 0.0-0.19 % Prothrombin Time 10.9 9.6-11.6 SEC Prothromb Time International Ratio 1.03 0.85-1.15 Activated Partial Thromboplast Time 31.1 26.3-35.5 SEC Sodium Level 142 136-145 mmol/L Potassium Level 3.8 3.5-5.1 mmol/L Chloride Level 105 101-111 mmol/L Carbon Dioxide Level 27 21-32 mmol/L Blood Urea Nitrogen 31 H 7-18 mg/dL Creatinine 1.3 H 0.5-1.0 mg/dL Glomerular Filtration Rate Calc 41 >90 mL/min Random Glucose 105 70-105 mg/dL Total Calcium 8.6 8.5-10.1 mg/dL Troponin I High Sensitivity 138 *H 4-50 ng/L Red Blood Cell Morphology See comments Magnesium Level 2.50 H 1.80-2.40 mg/dL Thyroid Stimulating Hormone (TSH) 2.25 # 0.36-3.74 uIU/mL Free Thyroxine (T4) Direct 1.60 H 0.76-1.46 ng/dL Free Triiodothyronine (T3) pg/mL 1.31 L 2.18-3.98 pg/mL ASSESSMENT: Medication-induced bradycardia. Atrial fibrillation. Right breast cancer. Underlying immunosuppression. Dehydration. Acute renal failure, improving. PLAN: Continue reheater recommendations Continue antiarrhythmic. Will monitor electrolytes. Continue GI prophylaxis Monitor renal function This case was reviewed and discussed with my supervising physician and the above assessment and plan was formulated and agreed upon. KELLY WASSERMAN [facility] Sep 01, 2024 13:09
[2024-09-02] VITALS (7 sets, daily range): BP systolic 110–129; BP diastolic 57–75; PULSE 95–115; RESP 18–20; TEMP 97.6–98.7; O2SAT 97
--- NOTE | 2024-09-02 06:41 | NUR ---
Patient opted out of scheduled Cardizem at this time. Patient states medicine is causing dry mouth and weakness. During the night, patient did go from bed to wheelchair to commode, and heart rate did go as high as 130s. Current heart 115-118 bpm.
--- NOTE | 2024-09-02 09:15 | NUR ---
HOME MED: EXPLAINED TO PATIENT AND HER SPOUSE ABOUT DR. HERNÁNDEZ'S ORDER TO HOLD OFF ON HORMONAL THERAPY MEDICATION ANASTROZOLE WHILE IN HOSPITAL. VERBALIZED UNDERSTANDING.
--- NOTE | 2024-09-02 09:24 | PN ---
This is an 83-year-old female with a history of paroxysmal atrial fibrillation status post cardioversion in August 2023, hypertension, hyperlipidemia, chronic kidney disease, recurrent GI bleeding and breast cancer on immunotherapy. She was admitted 08/29/2024 secondary to atrial fibrillation with rapid ventricular response. She became bradycardic due to taking an additional dose of metoprolol tartrate 50 mg once daily. Both metoprolol tartrate 50 mg and amiodarone 100 mg were held on admission. Pacemaker insertion has been recommended due to tachy- sanjay syndrome, however she declined and wishes to consider it further. Yesterday diltiazem was titrated to every 6 hours due to atrial fibrillation with rapid ventricular response. She remains in atrial fibrillation with ventricular rates in the 90s to 100s. Her most recent blood pressure is 129/66. Her most recent echocardiogram 05/29/2024 demonstrates an ejection fraction of 55 to 60% with aortic valve sclerosis without stenosis, severely dilated left atrium and grade 3 diastolic dysfunction. She reports palpitations felt more with ambulation. She denies dizziness, weakness, or shortness or breath. On exam, she is in no acute distress, irregularly irregular rhythm, lungs are clear to auscultation bilaterally, no lower extremity edema is noted. Assessment: 1. Paroxysmal atrial fibrillation. 2. Sinus bradycardia. 3. Type 2 diabetes mellitus. 4. Hypertension. 5. Recurrent GI bleeding. Plan: 1. She has been in atrial fibrillation since 3:00 a.m. 09/01/2024, currently with ventricular rates in the 90s to 100s. We will titrate propafenone 75 mg two 3 times daily and continue diltiazem 30 mg every 6 hours. 2. If the atrial fibrillation persists, she may require cardioversion in order to restore sinus rhythm. 3. If she converts to sinus rhythm and becomes bradycardic, we will have another discussion regarding pacemaker insertion. 4. Continue Lovenox 60 mg once daily for stroke protection in the setting of atrial fibrillation. Transition back to Eliquis 2.5 mg twice daily prior to discharge. Vitals/Labs Vital Signs Date Time Temp Pulse Resp B/P (MAP) Pulse Ox O2 Delivery O2 Flow Rate FiO2 09/02/24 08:00 97 Room Air* 0 21 09/02/24 07:32 98.8 115 20 129/66 SUHAS CHAMPION Sep 02, 2024 09:24
[2024-09-02] MEDS: PROPAFENONE HCL 150 MG TABLET PO SCH (09:25)
--- NOTE | 2024-09-02 09:48 | NUR ---
SCHEDULED HOME INHALERS: TRILEGY AND SYMBICORT INHALERS ARE AVAILABLE FROM HOME. HOWEVER PATIENT AND SOUSE STATE THAT SHE HAS NOT BEEN USING THEM AT HOME AND DOES NOT NEED THEM.
[2024-09-03] VITALS (10 sets, daily range): BP systolic 95–149; BP diastolic 45–66; PULSE 69–120; RESP 16–20; TEMP 97.7–98.6; O2SAT 96–97
[2024-09-03 04:53] LABS: NUCLEATED RED BLOOD CELLS 0.0 % (0.0-0.19); PLATELET COUNT (AUTO) 263.0 K/uL (130-400); RED BLOOD CELL COUNT(AUTO) 3.21 MIL/uL (4.00-5.50); RED CELL DISTRIBUTION WIDTH 13.6 % (11.0-15.5); WHITE BLOOD COUNT (AUTO) 7.3 K/uL (4.8-10.8)
[2024-09-03 05:10] LABS: CREATININE 1.2 mg/dL (0.5-1.0); GLOMERULAR FILTR. RATE CALC 45.0 mL/min (>90); GLUCOSE,RANDOM 107.0 mg/dL (70-105); SODIUM SERUM 139.0 mmol/L (136-145); UREA NITROGEN, BLOOD 25.0 mg/dL (7-18)
--- NOTE | 2024-09-03 08:20 | PN ---
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 Vega, presented with an episode of palpitations with rapid heart rate at home associated with chest pressure for which she took extra metoprolol tartrate 50 mg. She subsequently converted to sinus rhythm and had sinus bradycardia at 39 beats per minute. On 09/01/2024, she developed recurrent atrial fibrillation with rapid ventricular response. She was seen in consultation by Dr. Rader. The patient declined permanent pacemaker placement and preferred continued medical management. Currently she has been initiated on propafenone 75 mg p.o. q.8 hours and diltiazem has been titrated to 30 mg p.o. q.6 hours. She has continued in atrial fibrillation at a rate of 90-100 beats per minute this morning. She offers no orthopnea or PND. Physical Examination: GENERAL: No acute distress. HEAD: Normal with no signs of head trauma. EYES: PERRLA, EOMI, conjunctiva and sclera normal. NECK: Supple without JVD. There is no tenderness, lymphadenopathy, or masses. No thyromegaly. Normal carotid upstrokes without bruits. LUNGS: Clear breath sounds bilaterally. No wheezes, or rhonchi. HEART: Irregularly irregular underlying rhythm. Normal S1 and S2 without murmurs, gallop or rub. VASC: Peripheral pulses +2 bilaterally. EXT: No clubbing, cyanosis or edema. NEURO: Awake, alert, and oriented x3. No focal neurological deficits noted. Laboratory: Hematology Labs: Test 09/03/24 03:59 Range/Units White Blood Count 7.3 4.8-10.8 K/uL Red Blood Count 3.21 L 4.00-5.50 MIL/uL Hemoglobin 9.2 L 12.0-16.0 g/dL Hematocrit 28.5 L 36-48 % Mean Corpuscular Volume 88.8 79-99 fL Mean Corpuscular Hemoglobin 28.7 27.0-33.0 pg Mean Corpuscular Hemoglobin Concent 32.3 32.0-36.0 g/dL Red Cell Distribution Width 13.6 11.0-15.5 % Platelet Count 263 130-400 K/uL Mean Platelet Volume 8.6 7.5-10.5 fL Nucleated Red Blood Cells 0.0 0.0-0.19 % Chemistry Labs: Test 09/03/24 03:59 Range/Units Sodium Level 139 136-145 mmol/L Potassium Level 3.6 3.5-5.1 mmol/L Chloride Level 106 101-111 mmol/L Carbon Dioxide Level 25 21-32 mmol/L Blood Urea Nitrogen 25 H 7-18 mg/dL Creatinine 1.2 H 0.5-1.0 mg/dL Glomerular Filtration Rate Calc 45 >90 mL/min Random Glucose 107 H 70-105 mg/dL Total Calcium 8.9 8.5-10.1 mg/dL Magnesium Level 1.90 1.80-2.40 mg/dL Diagnostics / Radiology: Impression and Plan: Tachycardia-bradycardia syndrome: Paroxysmal atrial fibrillation on long-term Eliquis anticoagulation and low-dose amiodarone antiarrhythmic therapy: -status post withdrawal of amiodarone and transitioned to propafenone 75 mg p.o. q.8 hours -initially converted to a normal sinus rhythm but has had recurrent atrial fibrillation onset 09/01/2024 and persist this morning -proceed with direct current cardioversion today -continue propafenone and diltiazem therapy for now -continue Lovenox 60 mg subQ daily with plans to transitioned back to Eliquis prior to discharge -TSH is normal. 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 Vega PHYSICIAN ATTESTATION OF PHYSICIAN AWAKE OVERNIGHT MONITOR DOCUMENTATION: I attest that I was physically present for the oconnell portions of the service and evaluated the patient with the [employer], and I reviewed and discussed the case with the [employer] and made modifications to the [employer]'s findings and plans of care as documented above KATHRYN MURDOCK Sep 03, 2024 08:20 KYREE CHOUDHURY MD Sep 04, 2024 09:29
--- NOTE | 2024-09-03 10:00 | NUR ---
ANESTHESIA; CALLED AND SPOKE WITH EMILEE COMPOSITION MIXER AT EXT [phone] AND SHE WILL NOTIFY EARLY CHILDHOOD LEAD TEACHER APPLIER FOR CARDIOVERSION TO BE DONE AT 1230PM-1PM TODAY.
[2024-09-03] MEDS ORDERED: MIDAZOLAM HCL 1 MG/ML 2ML VIAL IVP ONE (12:00)
[2024-09-03] MEDS ORDERED: LIDOCAINE PF 100MG/5ML (2%) SYRINGE 5ML ONE (15:08)
--- NOTE | 2024-09-03 15:30 | NUR ---
CARDIOVERSION: DR. Margarita CHOUDHURY AND DIXIE SHAH IN TO DO CARDIOVERSION. 150 JOULES SYNCHRONIZED SHOCK X 1 GIVEN. SUCCESSFUL CARDIOVERSION...SINUS RHYTHM HR 70-77. REFER TO SEDATION FLOW SHEET.
--- NOTE | 2024-09-03 15:45 | PRN ---
Procedure: [facility] Cardioversion Procedure Note DATE OF PROCEDURE: Sep 03, 2024 PROCEDURE PERFORMED: DIRECT-CURRENT CARDIOVERSION PREFORMING PHYSICIAN: Dr. Oneil Choudhury MD, [facility] INDICATION: Persistent atrial fibrillation PROCEDURE NOTE: After informed consent was obtained, and time-out procedure performed, as well as verification of resuscitative equipment availability, the patient was anesthetized by anesthesia Services with 20 mg of propofol bolus. When anesthetized she underwent direct-current cardioversion with 120 J of synchronized, biphasic, direct-current energy to sinus rhythm. The patient nitin erated the procedure well. There were no immediate complications noted. COMPLICATIONS: None, the patient tolerated the procedure well and there were no immediate complications noted. She persisted in sinus rhythm for several minutes of monitoring at bedside and this was confirmed on twelve-lead EKG. DISCHARGE RECOMMENDATIONS: No antiarrhythmic medications have been recommended by Dr. Castillo Rader. Defer discharge for 24 hours ONEIL CHOUDHURY MD Sep 03, 2024 15:45
--- NOTE | 2024-09-03 17:04 | PN ---
This is a n 83y/o female with a past medical history of Coronary artery disease. It seems the patient was admitted to the hospital with shortness of breath. Patient was called. Patient with bradycardia/tacky syndrome. Patient was evaluated by cardiology and their plan for possible pacemaker insertion. This patient with past medical history significant for breast cancer with the patient follow-up with Dr. Vega and was [facility]. It seems the patient was not a candidate for any chemo. Patient receiving hormonal therapy treatment with anastrozole. Stop the anastrozole during admission This patient supposed to have pacemaker yesterday but the family opted to do it. There is plan for treatment patient medically Physical Exam: General: Alert and oriented. NAD. Chronically ill appearing. Frail. HEENT: NC/AT. Oral mucosa is moist. Neck: No masses, JVD, or carotid bruits Lungs: NRD. SCM. Bilaterally CTA. No obvious wheezing, rales or rhonchi. Cardio: Bradycardiac noted. Normal S1 and S2. +S4. PMI was not displaced. Abdomen: Soft. NT. ND. Normal active bowel sounds x 4 quadrants. Extremities: Diminished throughout. No edema, clubbing, or cyanosis. Neuro: CN II-XII were grossly intact. No focal deficits. Assessment 1. Anemia. Hemoglobin level is stable at 8.4 g/deciliter 2. Chronic renal insufficiency 3. History of breast cancer with the patient on hormonal therapy treatment with anastrozole. Patient follows with Dr. Marin from [facility]. 4. Shortness of breath 5. Failure to thrive Plan 1. Continue to hold her hormonal therapy treatment with anastrozole while she is in the hospital. 2. Since the family does not want to do pacemaker. There is a plan for cardioversion to be done. This patient is cleared from our point of view to do 3. I have long discussion with the patient and family member regarding the plan of care. I answer all question and concern and I spent more than 35 minutes. I discussed the case with her oncologist to agree on the plan of care. 4. This patient with anemia of chronic disease. So this patient could benefit actually from Procrit 20,000 units subcu. 5. There was hypersegmented neutrophils. This patient to be started on folic acid 1 mg p.o. daily and vitamin B12 1000 mcg p.o. daily. Vitals/Labs Vital Signs Date Time Temp Pulse Resp B/P (MAP) Pulse Ox O2 Delivery O2 Flow Rate FiO2 09/03/24 11:00 98.1 120 20 122/56 99 Room Air 09/03/24 07:46 0 21 Laboratory Tests 09/03/24 03:59 Medications Current Medications Insulin Human Lispro INSULIN SLIDING SCAL... ACHS SQ; Start 08/29/24 at 21:00; Stop 08/30/24 at 16:13; Status DC Furosemide 20 mg DAILY PO Last administered on 09/03/24at 09:20; Start 08/31/24 at 09:00; Stop 09/30/24 at 08:59 Latanoprost 1 DROP HS OS Last administered on 09/02/24at 21:43; Start 08/30/24 at 21:00; Stop 09/29/24 at 20:59 Doxazosin Mesylate 4 mg DAILY PO Last administered on 09/03/24at 09:20; Start 08/31/24 at 09:00; Stop 09/30/24 at 08:59 Home Med (Fluticasone/ Umeclidin/ Vilan... DAILY IH; Start 08/31/24 at 09:00; Stop 09/30/24 at 08:59 Atorvastatin Calcium 10 mg HS PO Last administered on 09/02/24at 20:28; Start 08/30/24 at 21:00; Stop 09/29/24 at 20:59 Dorzolamide/ Timolol 1 DROP BID OS Last administered on 09/03/24at 09:21; Start 08/30/24 at 21:00; Stop 09/29/24 at 20:59 Home Med ([symbicort] 2 PUFF) BID IH; Start 08/30/24 at 21:00; Stop 09/29/24 at 20:59 Enoxaparin Sodium 60 mg Q24H SQ Last administered on 09/02/24at 18:26; Start 08/30/24 at 18:00; Stop 09/29/24 at 17:59 Propafenone HCl 75 mg BID PO Last administered on 09/01/24at 20:37; Start 08/31/24 at 11:00; Stop 09/02/24 at 09:15; Status DC Diltiazem HCl 30 mg TID PO Last administered on 09/01/24at 04:54; Start 08/31/24 at 14:00; Stop 09/01/24 at 10:21; Status DC Diltiazem HCl 30 mg Q6H6 PO Last administered on 09/03/24at 05:54; Start 09/01/24 at 10:30; Stop 09/30/24 at 13:59 Propafenone HCl 75 mg Q8H5 PO Last administered on 09/03/24at 04:09; Start 09/02/24 at 09:30; Stop 09/30/24 at 10:59 Midazolam HCl 2 mg ONCE ONCE IVP; Start 09/03/24 at 12:00; Stop 09/03/24 at 10:04; Status DC Fentanyl Citrate 100 mcg ONCE ONCE IVP; Start 09/03/24 at 12:00; Stop 09/03/24 at 10:04; Status DC Lidocaine HCl 100 mg STK-MED ONCE .ROUTE; Start 09/03/24 at 15:08; Stop 09/03/24 at 15:08; Status DC Propofol 200 mg STK-MED ONCE IV; Start 09/03/24 at 15:08; Stop 09/03/24 at 15:08; Status DC RAIZA HERNÁNDEZ MD Sep 03, 2024 17:04
--- NOTE | 2024-09-03 18:00 | NUR ---
REMAINS SINUS RHYTHM 70-72.
--- NOTE | 2024-09-03 20:15 | PN ---
INFECTIOUS DISEASE PROGRESS NOTE Date of Service: Sep 03, 2024 SUBJECTIVE: Patient was seen at bedside in room 203. Patient is awake, alert and oriented. Patient continues on atrial fibrillation and during rounding today patient was being kept NPO for a possible cardioversion later today. Family members visiting at bedside. No dyspnea observe and saturating 96-99% on room air. No fever, temperature is 98.1. Renal function continues to improve, BUN is 25 and creatinine of 1.2. Denying palpitations at this time. We will continue to follow patient's care. PHYSICAL EXAM EYES: Anicteric. Pupils equal and reactive. HENT: No oral thrush seen, moist Oral mucosa. NECK: Supple, no JVD or thyromegaly. LUNGS: Good air entry. No rales, no rhonchi. CARDIOVASCULAR: S1, S2 regular. No murmur heard. ABDOMEN: Soft, non tender, bowel sounds present, no organomegaly. CENTRAL NERVOUS SYSTEM: Awake, alert, oriented x 3. SKIN: No rashes, no swelling. LYMPHATICS: No peripheral lymphadenopathy. MUSCULOSKELETAL: No joint swelling, erythema or tenderness. EXTREMITIES: No cyanosis or clubbing. BACK: No deformity, no pressure ulcer. GENITOURINARY: No dysuria or hematuria. Vital Sign (Last 12 Hours) 09/03/24 09/03/24 09/03/24 11:00 16:00 19:08 Temp 98.1 97.9 98.6 Pulse 120 74 69 Resp 20 16 16 B/P (MAP) 122/56 127/66 136/56 Pulse Ox 99 100 96 O2 Delivery Room Air Room Air Room Air Intake & Output (last 24hrs) 09/02/24 09/02/24 09/03/24 15:00 23:00 07:00 Intake Total 1500 ml Balance 1500 ml LABS: Laboratory: Test 09/03/24 03:59 Range/Units White Blood Count 7.3 4.8-10.8 K/uL Red Blood Count 3.21 L 4.00-5.50 MIL/uL Hemoglobin 9.2 L 12.0-16.0 g/dL Hematocrit 28.5 L 36-48 % Mean Corpuscular Volume 88.8 79-99 fL Mean Corpuscular Hemoglobin 28.7 27.0-33.0 pg Mean Corpuscular Hemoglobin Concent 32.3 32.0-36.0 g/dL Red Cell Distribution Width 13.6 11.0-15.5 % Platelet Count 263 130-400 K/uL Mean Platelet Volume 8.6 7.5-10.5 fL Nucleated Red Blood Cells 0.0 0.0-0.19 % Sodium Level 139 136-145 mmol/L Potassium Level 3.6 3.5-5.1 mmol/L Chloride Level 106 101-111 mmol/L Carbon Dioxide Level 25 21-32 mmol/L Blood Urea Nitrogen 25 H 7-18 mg/dL Creatinine 1.2 H 0.5-1.0 mg/dL Glomerular Filtration Rate Calc 45 >90 mL/min Random Glucose 107 H 70-105 mg/dL Total Calcium 8.9 8.5-10.1 mg/dL Magnesium Level 1.90 1.80-2.40 mg/dL ASSESSMENT: Atrial fibrillation. Medication-induced bradycardia, POA. Right breast cancer. Underlying immunosuppression. Dehydration. Acute renal failure, improving. PLAN: Hand Molder And Caster following patient and will possible undergo cardioversion later today. Continue antiarrhythmic. Will monitor electrolytes. Continue GI prophylaxis Will monitor renal function This case was reviewed and discussed with my supervising physician and the above assessment and plan was formulated and agreed upon. ATTESTATION BY PHYSICIAN I have seen and examined the patient. I reviewed the documentation, medical decision making, and treatment plan as noted by the mid-level provider above. I agree with the findings and plan of care. JOSI TAY MD, MIRTA L [facility] Sep 03, 2024 20:15
[2024-09-04 03:56] VITALS: BP 122/50; PULSE 61; RESP 16; TEMP 98.1
[2024-09-04 04:33] LABS: NUCLEATED RED BLOOD CELLS 0.0 % (0.0-0.19); PLATELET COUNT (AUTO) 251.0 K/uL (130-400); RED BLOOD CELL COUNT(AUTO) 2.95 MIL/uL (4.00-5.50); RED CELL DISTRIBUTION WIDTH 13.6 % (11.0-15.5); WHITE BLOOD COUNT (AUTO) 7.4 K/uL (4.8-10.8)
[2024-09-04 04:45] LABS: CREATININE 1.6 mg/dL (0.5-1.0); GLOMERULAR FILTR. RATE CALC 32.0 mL/min (>90); GLUCOSE,RANDOM 90.0 mg/dL (70-105); SODIUM SERUM 137.0 mmol/L (136-145); UREA NITROGEN, BLOOD 27.0 mg/dL (7-18)
--- NOTE | 2024-09-04 06:20 | PN ---
MEDICAL MANAGEMENT FOLLOWUP NOTE DATE OF SERVICE: 09/02/2024 SUBJECTIVE: The patient is seen and examined at bedside today. The patient has no fever, no chills. No nausea, no vomiting. No abdominal pain. No sore throat or rhinorrhea. No depression. No suicidal ideation. No heat or cold intolerance. No bleeding tendency. The patient is refusing pacemaker. I would like to have cardioversion tomorrow. PHYSICAL EXAMINATION: VITAL SIGNS: Temperature 97.5. EYES: No icterus. Pupils equal and reactive. HENT: No oral thrush seen. Moist oral mucosa. NECK: Supple. No JVD or thyromegaly. LUNGS: Good air entry. No rales. No rhonchi. CARDIOVASCULAR: S1 and S2, regular. No murmur heard. ABDOMEN: Full, soft. Bowel sounds are present. CENTRAL NERVOUS SYSTEM: Awake, alert, oriented x 3. No focal deficits. SKIN: No rashes, no itchiness. LYMPHATIC: No peripheral lymphadenopathy. MUSCULOSKELETAL: No joint swelling, erythema or tenderness. . ASSESSMENT: An 83-year-old female admitted with palpitations. Current problems include: * Atrial fibrillation . * Right breast cancer. * General weakness. * Hypertension. * Acute renal failure. * Dehydration. PLAN: * Continue antiarrhythmic agent. * Continue antihypertensive. * Continue nutritional support. * Continue GI prophylaxis. * Monitor electrolytes. * The patient will be followed up closely. TID: [id number] RECEIPT: [id number]
[2024-09-04 08:00] VITALS: O2SAT 98
[2024-09-04 08:43] VITALS: BP 121/59; PULSE 60; RESP 18; TEMP 98
--- NOTE | 2024-09-04 09:01 | EKG ---
[facility] Test Date: 2024-09-03 Test Time: 15:53:54 Pat Name: EMMIE BENJAMIN Department: [facility] Room: 203 1 Gender: F Continuous Drier Helper: [id number] : 1940 Requested By: KYREE CHOUDHURY Order Number: [id number] Reading MD: Kit Davis Measurements Intervals [place] Rate: 74 P: 59 [place]: 204 QRS: -50 QRSD: 122 T: 122 QT: 416 QTc: 461 Interpretive Statements Normal sinus rhythm Left axis deviation Nonspecific intraventricular conduction delay ST & T wave abnormality, consider lateral ischemia Compared to ECG 09/01/2024 04:50:09 Intraventricular conduction delay now present Possible ischemia now present Atrial fibrillation no longer present Left bundle-branch block no longer present ST (T wave) deviation still present Electronically Signed On 09-04-2024 12:02:42 CDT by Kit Davis Please click the below link to view image of tracing.
[2024-09-04] MEDS ORDERED: DILT-36 PO (09:04)
[2024-09-04] MEDS ORDERED: PROP150T28 PO (09:04)
--- NOTE | 2024-09-04 09:12 | PN ---
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 Vega, presented with an episode of palpitations with rapid heart rate at home associated with chest pressure for which she took extra metoprolol tartrate 50 mg. She subsequently converted to sinus rhythm and had sinus bradycardia at 39 beats per minute. On 09/01/2024, she developed recurrent atrial fibrillation with rapid ventricular response. She was seen in consultation by Dr. Rader. The patient declined permanent pacemaker placement and preferred continued medical management. Currently she has been initiated on propafenone 75 mg p.o. q.8 hours and diltiazem has been titrated to 30 mg p.o. q.6 hours. She underwent direct current cardioversion 09/03/2024 to sinus rhythm with a single 120 joule synchronized biphasic direct current discharge. She has mainta ined sinus rhythm overnight and remains with a heart rate in the 60 beat per minute range. She appears to be tolerating her current [id number] mg q.8 hours. Physical Examination: GENERAL: No acute distress. HEAD: Normal with no signs of head trauma. EYES: PERRLA, EOMI, conjunctiva and sclera normal. NECK: Supple without JVD. There is no tenderness, lymphadenopathy, or masses. No thyromegaly. Normal carotid upstrokes without bruits. LUNGS: Clear breath sounds bilaterally. No wheezes, or rhonchi. HEART: Regular rhythm. Normal S1 and S2 without murmurs, gallop or rub. VASC: Peripheral pulses +2 bilaterally. EXT: No clubbing, cyanosis or edema. NEURO: Awake, alert, and oriented x3. No focal neurological deficits noted. Laboratory: Hematology Labs: Test 09/04/24 04:00 Range/Units White Blood Count 7.4 4.8-10.8 K/uL Red Blood Count 2.95 L 4.00-5.50 MIL/uL Hemoglobin 8.3 L 12.0-16.0 g/dL Hematocrit 26.4 L 36-48 % Mean Corpuscular Volume 89.5 79-99 fL Mean Corpuscular Hemoglobin 28.1 27.0-33.0 pg Mean Corpuscular Hemoglobin Concent 31.4 L 32.0-36.0 g/dL Red Cell Distribution Width 13.6 11.0-15.5 % Platelet Count 251 130-400 K/uL Mean Platelet Volume 8.7 7.5-10.5 fL Nucleated Red Blood Cells 0.0 0.0-0.19 % Chemistry Labs: Test 09/04/24 04:00 Range/Units Sodium Level 137 136-145 mmol/L Potassium Level 3.4 L 3.5-5.1 mmol/L Chloride Level 104 101-111 mmol/L Carbon Dioxide Level 27 21-32 mmol/L Blood Urea Nitrogen 27 H 7-18 mg/dL Creatinine 1.6 H 0.5-1.0 mg/dL Glomerular Filtration Rate Calc 32 >90 mL/min Random Glucose 90 70-105 mg/dL Total Calcium 8.6 8.5-10.1 mg/dL Magnesium Level 1.80 1.80-2.40 mg/dL Diagnostics / Radiology: Impression and Plan: Tachycardia-bradycardia syndrome: Paroxysmal atrial fibrillation on long-term Eliquis anticoagulation and low-dose amiodarone antiarrhythmic therapy: Status post DC cardioversion 09/03/2024 to sinus rhythm: -cleared for discharge home today on propafenone 150 mg p.o. b.i.d. and diltiazem ER 120 mg p.o. daily -resume Eliquis 2.5 b.i.d. -TSH is normal. 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 Ghaddar Discharge medications: Propafenone 150 mg p.o. b.i.d. Diltiazem ER 120 mg p.o. daily Doxazosin 4 mg p.o. daily Eliquis 2.5 mg p.o. b.i.d. Pravastatin 40 mg p.o. daily Potassium chloride effervescent 25 mEq p.o. daily Furosemide 20 mg p.o. daily Anastrozole 1 mg p.o. daily KYREE CHOUDHURY MD Sep 04, 2024 09:12
[2024-09-04 12:01] VITALS: BP 143/62; PULSE 64; RESP 18; TEMP 97.8
[2024-09-04 12:17] VITALS: BP 143/62; PULSE 64; RESP 18; TEMP 97.8
--- NOTE | 2024-09-04 14:50 | NUR ---
DISCHARGE: GIVEN DISMISSAL INSTRUCTIONS TO PATIENT AND HER DAUGHTER, NARAYAN. VERBALIZED UNDERSTANDING. REMOVED SALINE LOCK FROM RIGHT ARM, IV SITE WITHOUT REDNESS NOTED. REMOVED TELE PACK. TAKEN TO PRIVATE CAR ALONG WITH PERSONAL BELONGINGS VIA WHEELCHAIR BY STUDENT NURSEKAREN AND PCPAMY.
--- NOTE | 2024-09-04 16:28 | DS ---
Discharge Summary Hospital Course This is a 83-year-old female patient with history of right breast cancer, atrial fibrillation, on anticoagulation with Eliquis and on metoprolol, hypertension, and dyslipidemia who presented to the hospital with palpitation. The patient's symptoms started few hours prior to presentation. The patient claims that she took 50 mg of metoprolol instead of 25. The patient has no fever or chills. Upon arrival in the ER, the patient's heart rate was 98. EKG showed sinus rhythm. The patient's troponin was 135. Denies chest pain or orthopnea. No shortness of breath. Denies dysuria or urinary frequency. Dr. Oneil Molina, patient's atomic spectroscopist were consulted. Patient was on persistent atrial fibrillation and patient under goal cardioversion on 09/03/2024. This morning patient is is on normal sinus rhythm. New prescriptions for Cardizem and Propafenone was prescribed by atomic spectroscopist. Patient will be discharged to home today. FINAL DISCHARGE DIAGNOSIS: Atrial fibrillation, status post cardioversion converted to normal sinus rhythm. Medication-induced bradycardia, POA. Right breast cancer. Underlying immunosuppression. Dehydration. Acute renal failure, improving. Anemia. PLAN: Discharge patient to home today. Continue same home medications. New prescriptions for Cardizem and Propafenone as prescribed by atomic spectroscopist. Follow up with the atomic spectroscopist in two weeks. Follow up with Dr. Burdick in [place] in 1 - 2 weeks. ATTESTATION BY PHYSICIAN I have seen and examined the patient. I reviewed the documentation, medical decision making, and treatment plan as noted by the mid-level provider above. I agree with the findings and plan of care. JOSI TAY MD, MIRTA L [facility] Sep 04, 2024 16:28
--- NOTE | 2024-09-04 17:01 | PN ---
This is a n 83y/o female with a past medical history of Coronary artery disease. It seems the patient was admitted to the hospital with shortness of breath. Patient was called. Patient with bradycardia/tacky syndrome. Patient was evaluated by cardiology and their plan for possible pacemaker insertion. This patient with past medical history significant for breast cancer with the patient follow-up with Dr. Vega and was [facility]. It seems the patient was not a candidate for any chemo. Patient receiving hormonal therapy treatment with anastrozole. Stop the anastrozole during admission This patient supposed to have pacemaker yesterday but the family opted to do it. There is plan for treatment patient medically Physical Exam: General: Alert and oriented. NAD. Chronically ill appearing. Frail. HEENT: NC/AT. Oral mucosa is moist. Neck: No masses, JVD, or carotid bruits Lungs: NRD. SCM. Bilaterally CTA. No obvious wheezing, rales or rhonchi. Cardio: Bradycardiac noted. Normal S1 and S2. +S4. PMI was not displaced. Abdomen: Soft. NT. ND. Normal active bowel sounds x 4 quadrants. Extremities: Diminished throughout. No edema, clubbing, or cyanosis. Neuro: CN II-XII were grossly intact. No focal deficits. Assessment 1. Anemia. Hemoglobin level is stable at 8.4 g/deciliter 2. Chronic renal insufficiency 3. History of breast cancer with the patient on hormonal therapy treatment with anastrozole. Patient follows with Dr. Marin from [facility]. 4. Shortness of breath 5. Failure to thrive Plan 1. Continue to hold her hormonal therapy treatment with anastrozole while she is in the hospital. 2. Since the family does not want to do pacemaker. There is a plan for cardioversion to be done. This patient is cleared from our point of view to do 3. I have long discussion with the patient and family member regarding the plan of care. I answer all question and concern and I spent more than 35 minutes. I discussed the case with her oncologist to agree on the plan of care. Patient to follow-up with oncology after discharge home. 4. This patient with anemia of chronic disease. So this patient could benefit actually from Procrit 20,000 units subcu. Vitals/Labs Vital Signs Date Time Temp Pulse Resp B/P (MAP) Pulse Ox O2 Delivery O2 Flow Rate FiO2 09/04/24 12:17 97.9 64 18 143/62 97 Room Air 09/04/24 08:00 0 21 Laboratory Tests 09/04/24 04:00 Medications Current Medications Insulin Human Lispro INSULIN SLIDING SCAL... ACHS SQ; Start 08/29/24 at 21:00; Stop 08/30/24 at 16:13; Status DC Furosemide 20 mg DAILY PO Last administered on 09/04/24at 08:50; Start 08/31/24 at 09:00; Stop 09/04/24 at 15:03; Status DC Latanoprost 1 DROP HS OS Last administered on 09/03/24at 21:27; Start 08/30/24 at 21:00; Stop 09/04/24 at 15:03; Status DC Doxazosin Mesylate 4 mg DAILY PO Last administered on 09/04/24at 08:50; Start 08/31/24 at 09:00; Stop 09/04/24 at 15:03; Status DC Home Med (Fluticasone/ Umeclidin/ Vilan... DAILY IH; Start 08/31/24 at 09:00; Stop 09/04/24 at 15:03; Status DC Atorvastatin Calcium 10 mg HS PO Last administered on 09/03/24at 21:24; Start 08/30/24 at 21:00; Stop 09/04/24 at 15:03; Status DC Dorzolamide/ Timolol 1 DROP BID OS Last administered on 09/04/24at 08:49; Start 08/30/24 at 21:00; Stop 09/04/24 at 15:03; Status DC Home Med ([symbicort] 2 PUFF) BID IH; Start 08/30/24 at 21:00; Stop 09/04/24 at 15:03; Status DC Enoxaparin Sodium 60 mg Q24H SQ Last administered on 09/03/24at 18:14; Start 08/30/24 at 18:00; Stop 09/04/24 at 09:12; Status DC Propafenone HCl 75 mg BID PO Last administered on 09/01/24at 20:37; Start 08/31/24 at 11:00; Stop 09/02/24 at 09:15; Status DC Diltiazem HCl 30 mg TID PO Last administered on 09/01/24at 04:54; Start 08/31/24 at 14:00; Stop 09/01/24 at 10:21; Status DC Diltiazem HCl 30 mg Q6H6 PO Last administered on 09/04/24at 05:32; Start 09/01/24 at 10:30; Stop 09/04/24 at 09:12; Status DC Propafenone HCl 75 mg Q8H5 PO Last administered on 09/04/24at 05:32; Start 09/02/24 at 09:30; Stop 09/04/24 at 09:12; Status DC Midazolam HCl 2 mg ONCE ONCE IVP; Start 09/03/24 at 12:00; Stop 09/03/24 at 10:04; Status DC Fentanyl Citrate 100 mcg ONCE ONCE IVP; Start 09/03/24 at 12:00; Stop 09/03/24 at 10:04; Status DC Lidocaine HCl 100 mg STK-MED ONCE .ROUTE; Start 09/03/24 at 15:08; Stop 09/03/24 at 15:08; Status DC Propofol 200 mg STK-MED ONCE IV; Start 09/03/24 at 15:08; Stop 09/03/24 at 15:08; Status DC RAIZA HERNÁNDEZ MD Sep 04, 2024 17:01
== END 2024-09-04 14:55 | disposition home or self-care (01) | DRG 309 ==
LOC: EDH 15:58 → EDHIP 17:56 → 2CH 08-30 04:56 → 2AH 08-30 19:40
PROVIDERS: ADMIT Internal Medicine Infectious Disease; ATTEND Internal Medicine Infectious Disease
PROC: 5A2204Z Restoration of Cardiac Rhythm, Single (ICD-10-PCS; principal; 2024-09-03)
DX: I49.5 Sick sinus syndrome (principal); D84.9 Immunodeficiency, unspecified; N17.9 Acute kidney failure, unspecified; I13.0 Hypertensive heart and chronic kidney disease with heart failure and stage 1 through stage 4 chronic kidney disease, or unspecified chronic kidney disease; I50.32 Chronic diastolic (congestive) heart failure; K92.2 Gastrointestinal hemorrhage, unspecified; I48.0 Paroxysmal atrial fibrillation; E86.0 Dehydration; E11.22 Type 2 diabetes mellitus with diabetic chronic kidney disease; N18.30 Chronic kidney disease, stage 3 unspecified; C50.911 Malignant neoplasm of unspecified site of right female breast; D50.9 Iron deficiency anemia, unspecified; E03.9 Hypothyroidism, unspecified; E78.00 Pure hypercholesterolemia, unspecified; R62.7 Adult failure to thrive; Z68.21 Body mass index [BMI] 21.0-21.9, adult; Z79.01 Long term (current) use of anticoagulants
CPT/HCPCS: 36415; 71045; 80048; 80053; 81001; 82948; 83036; 83735; 84439; 84443; 84481; 84484; 85025; 85027; 85610; 85730; 92960; 93005; 99285; G0378; J1650; J2003; J2704; J3490

== ENCOUNTER 2024-12-27 08:49 | Day surgery (SDC) | payer OTHER, MEDICAID ==
[2024-12-25 10:18] LABS: IMMATURE GRANULOCYTE ABSOLUTE 0.04 K/uL (0-1); NUCLEATED RED BLOOD CELLS 0.0 % (0.0-0.19); PLATELET COUNT (AUTO) 394 K/uL (130-400); RED BLOOD CELL COUNT(AUTO) 4.02 MIL/uL (4.00-5.50); RED CELL DISTRIBUTION WIDTH 13.9 % (11.0-15.5); WHITE BLOOD COUNT (AUTO) 9.0 K/uL (4.8-10.8)
[2024-12-25 10:27] LABS: CREATININE 1.6 mg/dL (0.5-1.0); GLOMERULAR FILTR. RATE CALC 32.0 mL/min (>90); GLUCOSE,RANDOM 102.0 mg/dL (70-105); SODIUM SERUM 136.0 mmol/L (136-145); UREA NITROGEN, BLOOD 27.0 mg/dL (7-18)
[2024-12-25 10:31] LABS: INR 1.08 (0.85-1.15)
[2024-12-25 11:02] VITALS: BP 105/59; PULSE 94; RESP 18; TEMP 98.1
--- NOTE | 2024-12-25 14:35 | EKG ---
[facility] Test Date: 2024-12-25 Test Time: 11:02:31 Pat Name: EMMIE BENJAMIN Department: [facility] Room: Gender: F Mechanical Lead: [id number] : 1940 Requested By: CHUCKIE SPAIN Order Number: [id number] Reading MD: Marissa Roy Measurements Intervals [place] Rate: 99 P: 0 RI: 0 QRS: -63 QRSD: 170 T: 114 QT: 408 QTc: 525 Interpretive Statements Atrial fibrillation RBBB and LAFB LVH with secondary repolarization abnormality Compared to ECG 09/03/2024 15:53:54 No significant change Electronically Signed On 12-25-2024 19:41:19 ADVERTISING OPERATIONS COORDINATOR by Marissa Roy Please click the below link to view image of tracing.
[2024-12-27] VITALS (7 sets, daily range): BP systolic 104–126; BP diastolic 56–68; PULSE 90–93; RESP 16–18; TEMP 97.5–98.1
[~2024-12-27] VITALS: Ht 162.6 cm; Wt 59.4 kg
[2024-12-27] MEDS: 0.9%NACL 1000ML 1,000 ML IV SCH (09:17)
[2024-12-27] MEDS ORDERED: LIDOCAINE HCL 1% MDV 50ML VIAL ONE (10:41)
[2024-12-27] MEDS ORDERED: SODIUM BICARB 50MEQ 50ML VIAL 50 ML ONE (10:41)
[2024-12-27] MEDS ORDERED: VANCOMYCIN 1G/250ML KIT 500 ML IV ONE (10:44)
[2024-12-27] MEDS ORDERED: MIDAZOLAM HCL 1 MG/ML 2ML VIAL ONE ×3 (10:58→13:01)
[2024-12-27] MEDS ORDERED: IOHEXOL-350 50ML VIAL IV ONE (11:07)
--- NOTE | 2024-12-27 16:00 | NUR ---
DR JUDIT FARNSWORTH WITH LEADS ON XRAY OK TO DC HOME AT THIS TIME
--- NOTE | 2024-12-27 23:26 | HMCIMG ---
STUDY: X-RAY OF THE CHEST, 1 VIEW HISTORY: Status post pacemaker placement. TECHNIQUE: A single frontal view of the chest is submitted for interpretation. COMPARISON: Chest radiograph from 08/29 at 17:05 EDT. FINDINGS: Pulmonary aponte: Stable left basilar opacity is present. Interval development of mild right basilar opacity, which may represent atelectasis versus consolidation. No evidence of diffuse pulmonary edema or pneumothorax. Cardiac silhouette: Cardiomegaly. Mediastinum and odilia: Mediastinal contours are within normal limits without focal mediastinal mass. Aortic arch calcification is noted. Osseous structures: No aggressively appearing osseous lesion is seen. No acute bony abnormality is identified. Miscellaneous: Interval development of a mild to minimal right pleural effusion. No left pleural effusion is seen. A dual-lead cardiac pacemaker is in situ with intact-appearing leads. IMPRESSION: * Mild right basilar opacity, atelectasis versus consolidation, with a small right pleural effusion; correlate clinically for pneumonia versus volume loss. * Cardiomegaly with dual-lead cardiac pacemaker in situ and aortic arch calcification. * Compared with the chest radiograph from 08/29 at 17:05 EDT, there is new right basilar opacity and a new small right pleural effusion, while the left basilar opacity and osseous structures appear stable. /[place]
== END 2024-12-27 16:24 | disposition home or self-care (01) ==
LOC: DAH 08:49
PROVIDERS: ATTEND Internal Medicine Cardiovascular Disease
DX: I48.0 Paroxysmal atrial fibrillation (principal); I49.5 Sick sinus syndrome; R00.1 Bradycardia, unspecified; E78.5 Hyperlipidemia, unspecified; Z85.3 Personal history of malignant neoplasm of breast; I12.9 Hypertensive chronic kidney disease with stage 1 through stage 4 chronic kidney disease, or unspecified chronic kidney disease; N18.30 Chronic kidney disease, stage 3 unspecified; E11.22 Type 2 diabetes mellitus with diabetic chronic kidney disease; I45.2 Bifascicular block; J44.9 Chronic obstructive pulmonary disease, unspecified; Z79.01 Long term (current) use of anticoagulants; Z79.899 Other long term (current) drug therapy; Z88.0 Allergy status to penicillin
CPT/HCPCS: 80048; 85025; 85610; 85730; 36415; 93005; 33208; 99156; 99157 ×6; 71045; C1898 ×2; C1785; J3010 ×2; J7030; J0665; J3490 ×2; J2250 ×3; J3373; A4215; A4222; A4221; A4663; A4216; A4606; A4223 ×3; J0690; Q9967